=== PATIENT | female | born 1995 | race Two or more races ===

== ENCOUNTER 2019-06-14 11:22 | Observation (INO) | payer OTHER ==
--- NOTE | 2019-06-14 11:42 | ER Document Report ---
ED Medical Screen (RME) - General Stated Complaint: BLURRED VISION,SYNCOPE,NUMBNESS Time Seen by Provider: 06/14/19 11:30 Mode of Arrival: Wheelchair Information source: Patient Notes: 23-year-old female presented to ED for complaint of migraines dizziness blurred vision and passing out. She states she has passed out up to 5 minutes 3 times over the last couple days. She states she does have a history of epilepsy and took herself off of Keppra about 3 months. She states she has not followed up with her doctor since taken herself off of Keppra. She states she did not like the side effects of the Keppra. She states she does have a Mirena and does not think she is . 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 She denies any surgeries. I have greeted and performed a rapid initial assessment of this patient. A comprehensive ED assessment and evaluation of the patient, analysis of test results and completion of medical decision making process will be conducted by an additional ED providers. - Related Data Allergies/Adverse Reactions: No Known Allergies Allergy (Unverified 06/14/19 11:31)
--- NOTE | 2019-06-14 12:55 | ER Document Report ---
ED General - General Chief Complaint: Blurred Vision Stated Complaint: BLURRED VISION,SYNCOPE,NUMBNESS Time Seen by Provider: 06/14/19 11:30 Mode of Arrival: Wheelchair TRAVEL OUTSIDE OF THE [place] IN LAST 30 DAYS: No - HPI Notes: 23-year-old female with a history of seizures, not currently on any antiseizure medications presents with several complaints. Patient's primary complaint is a feeling that she might pass out and that her heart was beating fast. This happened several times over the last couple of days, last few minutes to 30 minutes at a time. [place] like her heart was beating fast in her chest. No personal history of arrhythmia, no family history of sudden in early age. Of concern is that on Wednesday she states she was at rest when she suddenly had onset of complete loss of vision in both eyes, she was only able to perceive vague light and dark but not shapes. At the same time she had onset of right upper extremity tingling and numbness. This lasted 30 minutes and then abated. Since then she has had some intermittent "problems with her peripheral vision" on the right, but does not complain of visual changes right now. Does complain of some right upper extremity vague tingling and numbness at this time. Denies any head injury, no current headache. History of migraines in the past but never had symptoms like this. Does not think she is . No vomiting, no diarrhea. No active chest pain. No other modifying factors, no other as sociated symptoms, no other provocative or palliative factors. - Related Data Allergies/Adverse Reactions: No Known Allergies Allergy (Unverified 06/14/19 11:31) Past Medical History - General Information source: Patient - Social History Smoking Status: Never Smoker Chew tobacco use (# tins/day): No Frequency of alcohol use: None Drug Abuse: None Family History: Reviewed & Not Pertinent Patient has suicidal ideation: No Patient has homicidal ideation: No - Medical History Notes: Includes seizure history Review of Systems - Review of Systems Notes: Review of systems as in the history of present illness, otherwise negative x 10 systems. Physical Exam - Vital signs Vitals: Temp Pulse Resp BP Pulse Ox 98.1 F 84 14 116/61 97 06/14/19 11:34 06/14/19 11:34 06/14/19 11:34 06/14/19 11:34 06/14/19 11:34 - Notes Notes: General: Well developed, well nourished. HEENT: Normocephalic, atraumatic. PEERL. No conjunctival injection. Neck: Supple, no significant adenopathy. No meningismus. Chest: Clear bilaterally, good air entry. Abdomen: Soft, non-tender, nondistended. Back: Non-tender. Normal ROM Extremities: No cyanosis, clubbing or edema. Vascular: Symmetric peripheral pulses, normal capillary refill. Skin: No significant rash. No petechiae or purpura. Motor: Normal tone and power. Symmetric. Neurologic: Alert and oriented to person place and time. Cranial nerves II-12 are intact. Sensation intact and symmetric in the upper and lower extremities but is diminished in the right upper extremity from the shoulder distal.. No cerebellar findings including finger-nose testing. No clonus. Gait deferred funduscopic exam shows crisp disc margins, no evidence of papilledema. Peripheral wu similar to the examiner on confrontational visual wu. Course - Re-evaluation Re-evalutation: 06/14/19 12:53 23-year-old female with the after mentioned symptoms, unclear etiology would have significant concern is her amaurosis fugax combined with her right upper extremity numbness. Although certainly would consider an atypical migraine or complex vascular migraine, the absence of any antecedent or current headache make this less likely. Stroke is possible as well as posterior circulation ischemia however, she is very low risk this would be atypical. No persistent visual changes or pain to suggest papilledema and associated optic neuritis and MS. At this point, we will proceed with telemetry monitoring and EKG to evaluate for arrhythmia, basic laboratory evaluation, CT imaging, serial exams and reevaluate. 06/14/19 15:16 Labs reviewed, CBC unremarkable, chemistries unremarkable. UPT negative. CT imaging of the brain shows no acute ab normality. Patient has had no recurrence of amaurosis fugax or other neurologic episodes during her course. No witnessed arrhythmia. Of note, her right upper extremity numbness has resolved. Although still low risk in terms of vascular phenomenon, patient has symptoms that are certainly concerning for some type of ischemia or intermittent occlusion. We will proceed with admission to the hospital service for observation and further work-up. - Vital Signs Vital signs: Temp Pulse Resp BP Pulse Ox 98.1 F 78 12 127/87 H 100 06/14/19 11:34 06/14/19 12:46 06/14/19 13:50 06/14/19 13:50 06/14/19 13:50 - Laboratory Result Diagrams: 06/14/19 12:44 06/14/19 12:44 Discharge - Discharge Clinical Impression: Amaurosis fugax, both eyes Condition: Serious Disposition: ADMITTED OBSERVATION Admitting Provider: Omar (Hospitalist) Unit Admitted: Telemetry
--- NOTE | 2019-06-14 13:18 | RADIOLOGY REPORT (SQ) ---
EXAM DESCRIPTION: CT HEAD WITHOUT COMPLETED DATE/TIME: 06/14/2019 1:01 pm REASON FOR STUDY: Right upper extremity numbness, amaurosis fugax COMPARISON: None. TECHNIQUE: Axial images acquired through the brain without intravenous contrast. Images reviewed wi th bone, brain and subdural windows. Additional sagittal and coronal reconstructions were generated. Images stored on PACS. All CT scanners at this facility use dose modulation, iterative reconstruction, and/or weight based d osing when appropriate to reduce radiation dose to as low as reasonably achievable (ALARA). [facility]: Dose Right [facility]: CareDose [facility]: Dose Right [facility]: Teradose 4D [facility]: Medical Direct Club RADIATION DOSE: CT Rad equipment meets quality standard of care and radiation dose reduction techniq ues were employed. CTDIvol: 53.2 mGy. DLP: 1017 mGy-cm. mGy. LIMITATIONS: None. FINDINGS: VENTRICLES: Normal size and contour. CEREBRUM: No masses. No hemorrhage. No midline shift. No evidence for acute infarction. Normal gra y/white matter differentiation. No areas of low density in the white matter. CEREBELLUM: No masses. No hemorrhage. No alteration of density. No evidence for acute infarction. EXTRAAXIAL SPACES: No fluid collections. No masses. ORBITS AND GLOBE: No intra- or extraconal masses. Normal contour of globe without masses. CALVARIUM: No fracture. PARANASAL SINUSES: No fluid or mucosal thickening. SOFT TISSUES: No mass or hematoma. OTHER: No other significant finding. IMPRESSION: NORMAL BRAIN CT WITHOUT CONTRAST. EVIDENCE OF ACUTE STROKE: NO. COMMENT: Quality ID # [id number]: Final reports with documentation of one or more dose reduction techniques (e.g., Automated exposure control, adjustment of the mA and/or kV according to patient size, use of iterative reconstruction technique) TECHNICAL DOCUMENTATION: JOB ID: [id number] [employer]- All Rights Reserved Reading location - IP/workstation name: [email or web address]
[2019-06-14 13:19] LABS: APPEARANCE,URINE CLEAR; BILIRUBIN,URINE NEGATIVE (NEGATIVE); COLOR,URINE STRAW; GLUCOSE, URINE NEGATIVE (NEGATIVE); KETONES,URINE NEGATIVE (NEGATIVE); LEUKOCYTE ESTERASE,URINE NEGATIVE (NEGATIVE); NITRITE,URINE NEGATIVE (NEGATIVE); PROTEIN,URINE NEGATIVE (NEGATIVE); URINE SPECIFIC GRAVITY 1.006; UROBILINOGEN,URINE NEGATIVE mg/dL (<2.0)
[2019-06-14 13:38] LABS: ABSOLUTE BASOPHILS # (AUTO) 0.1 10^3/uL (0.0-0.2); ABSOLUTE EOSINOPHILS # (AUTO) 0.1 10^3/uL (0.0-0.6); ABSOLUTE LYMPHOCYTES (AUTO) 1.8 10^3/uL (0.5-4.7); ABSOLUTE MONOCYTES (AUTO) 0.5 10^3/uL (0.1-1.4); ABSOLUTE NEUT (AUTO) 4.4 10^3/uL (1.7-8.2); ALBUMIN 4.4 g/dL (3.5-5.0); ALKALINE PHOSPHATASE 69 U/L (38-126); ANION GAP 7 (5-19); ASPARTATE AMINO TRANSFERASE 21 U/L (14-36); BASOPHILS % (AUTO) 0.8 % (0-2); BILIRUBIN,TOTAL 0.4 mg/dL (0.2-1.3); BLOOD UREA NITROGEN 16 mg/dL (7-20); CALCIUM 9.2 mg/dL (8.4-10.2); CARBON DIOXIDE 29 mmol/L (22-30); CHLORIDE 103 mmol/L (98-107); EOSINOPHILS % (AUTO) 1.7 % (0-6); GLUCOSE 82 mg/dL (75-110); HEMATOCRIT 36.9 % (36.0-47.0); HEMOGLOBIN 12.7 g/dL (12.0-15.5); LYMPHOCYTES % (AUTO) 26.6 % (13-45); MEAN CORPUSCULAR HEMOGLOBIN 30.4 pg (27.0-33.4); MEAN CORPUSCULAR HGB CONC 34.4 g/dL (32.0-36.0); MEAN CORPUSCULAR VOLUME 88 fl (80-97); MONOCYTES % (AUTO) 6.9 % (3-13); PLATELET COUNT 240 10^3/uL (150-450); POTASSIUM 4.3 mmol/L (3.6-5.0); RED BLOOD COUNT 4.18 10^6/uL (3.72-5.28); RED CELL DISTRIBUTION WIDTH 13.1 % (11.5-14.0); TOTAL CELLS COUNTED % (AUTO) 100 %; TOTAL PROTEIN 7.3 g/dL (6.3-8.2); WHITE BLOOD COUNT 6.9 10^3/uL (4.0-10.5)
[2019-06-14] MEDS ORDERED: ONDANSETRON HCL INJ/PF 4 MG/2 ML SDV IV PRN (16:19)
[2019-06-14] MEDS ORDERED: ACETAMINOPHEN 325 MG TABLET PO PRN (16:19)
[2019-06-14] MEDS ORDERED: ONDANSETRON 4 MG TAB.RAPDIS PO PRN (16:19)
[2019-06-14] MEDS ORDERED: ZOLPIDEM TARTRATE 5 MG TABLET PO PRN (16:19)
[2019-06-14] MEDS ORDERED: IBUPROFEN 600 MG TABLET PO PRN (16:28)
--- NOTE | 2019-06-14 16:49 | PDOC H&P ---
History of Present Illness Admission Date/PCP: 06/14/19 15:48 History of Present Illness: ANA LAURA BURGER is a 23 year old female who comes to the ED with a confusing history suggestive of a neurologic disease.. Patient states this past weekend she had blurred vision out of both eyes on Wednesday and then today, and she also complained of some tingling and numbness in the right upper extremity. She says she did not work Wednesday or Wednesday and just laid around the house and had no symptoms. 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 She says for years she has had headaches vertigo and dizziness and lightheaded she said sometimes she be dizzy 3 times a week. She says in the past providers have told her that it was all related to stress. She says that about 7 months ago in the ER at the [facility] she was told she had epilepsy and was started on Keppra 500 mg twice daily. She said no testing was done at that time. She says she took the medicine for about 3 weeks and then stopped it because she did not like the way she felt she also tells me that her son is now 6 years old and that during her she had "grand mall seizures". Patient does state that in the past she has had EEGs performed. Patient has another child that is 2 years old also a boy. Patient denies cigarette smoking and no drug allergies. Patient moved here 8 months ago from [facility]. She states that she was under a great deal of stress at that time but not as much now. Past Medical History Cardiac Medical History: Reports: None Pulmonary Medical History: Reports: None Neurological Medical History: Reports: Seizures - off meds Social History Smoking Status: Never Smoker - Advance Directive Resuscitation Status: Full Code Family History Family History: Reviewed & Not Pertinent, Other - She reports that she has a family history of CVAs as well as other problems, such as brain tumors and subdurals Parental Family History Reviewed: No Children Family History Reviewed: No Sibling(s) Family History Reviewed.: No Medication/Allergy Home Medications: No Home Medications 06/14/19 Allergies/Adverse Reactions: No Known Allergies Allergy (Unverified 06/14/19 11:31) Review of Systems Constitutional: PRESENT: headache(s) Respiratory: ABSENT: cough, hemoptysis Gastrointestinal: ABSENT: abdominal pain, constipation, diarrhea, hematemesis, hematochezia, nausea, vomiting Neurological: PRESENT: dizziness, paresthesias, vertigo, weakness Psychiatric: PRESENT: anxiety Physical Exam Vital Signs: Temp Pulse Resp BP Pulse Ox 98.1 F 78 18 123/76 100 06/14/19 11:34 06/14/19 12:46 06/14/19 16:01 06/14/19 16:01 06/14/19 16:01 Intake & Output 06/13/19 06/14/19 06/15/19 06:59 06:59 06:59 Weight 68.039 kg General appearance: PRESENT: no acute distress, cooperative, well-developed, well-nourished Head exam: PRESENT: atraumatic, normocephalic Neck exam: ABSENT: carotid bruit, JVD, lymphadenopathy, thyromegaly Respiratory exam: PRESENT: clear to auscultation barbara. ABSENT: rales, rhonchi, wheezes Cardiovascular exam: PRESENT: RRR. ABSENT: diastolic murmur, rubs, systolic murmur Neurological exam: PRESENT: alert, awake, oriented to person, oriented to place, oriented to time, oriented to situation, CN II-XII grossly intact. ABSENT: motor sensory deficit Psychiatric exam: PRESENT: appropriate affect, normal mood. ABSENT: homicidal ideation, suicidal ideation Results Laboratory Results: 06/14/19 12:44 06/14/19 12:44 06/14/19 06/14/19 06/14/19 12:44 12:44 12:44 WBC 6.9 RBC 4.18 Hgb 12.7 Hct 36.9 MCV 88 MCH 30.4 MCHC 34.4 RDW 13.1 Plt Count 240 Seg Neutrophils % 64.0 Sodium 139.3 Potassium 4.3 Chloride 103 Carbon Dioxide 29 Anion Gap 7 BUN 16 Creatinine 0.73 Est GFR ( Amer) > 60 Glucose 82 Calcium 9.2 Total Bilirubin 0.4 AST 21 Alkaline Phosphatase 69 Total Protein 7.3 Albumin 4.4 Urine Color STRAW Urine Appearance CLEAR Urine pH 7.0 Ur Specific [place] 1.006 Urine Protein NEGATIVE Urine Glucose (UA) NEGATIVE Urine Ketones NEGATIVE Urine Blood NEGATIVE Urine Nitrite NEGATIVE Ur Leukocyte Esterase NEGATIVE Urine WBC (Auto) 0 Urine RBC (Auto) 1 Impressions: Head CT 06/14/19 12:40 IMPRESSION: NORMAL BRAIN CT WITHOUT CONTRAST. EVIDENCE OF ACUTE STROKE: NO. Assessment and Plan - Diagnosis (1) Dizziness Is this a current diagnosis for this admission?: Yes (2) Lightheadedness Is this a current diagnosis for this admission?: Yes (3) Dysesthesia Is this a current diagnosis for this admission?: Yes (4) Anxiety Is this a current diagnosis for this admission?: Yes (5) Amaurosis fugax, both eyes Is this a current diagnosis for this admission?: Yes - Plan Summary Summary: Told the patient we do not have a neurologist here but we will go ahead and do a preliminary neuro work-up. She will be put in under observation status. She will probably need to follow-up as an outpatient with neurology. She is test in the ER is negative and CT head scan is negative as we ll, sed rate and CRP will also be checked. - Time Time Spent with patient: 35 or more minutes
[2019-06-14] MEDS ORDERED: ENOXAPARIN SODIUM INJ 40 MG/0.4 ML DISP.SYRIN SUBCUT SCH (18:00)
--- NOTE | 2019-06-14 18:11 | RADIOLOGY REPORT (SQ) ---
EXAM DESCRIPTION: MRI HEAD WITHOUT; MRA HEAD WITHOUT COMPLETED DATE/TIME: 06/14/2019 5:55 pm REASON FOR STUDY: tia COMPARISON: None. TECHNIQUE: Multiplanar imaging includes non-contrasted T1, T2, FLAIR, and diffusion with ADC map seq uences. Images stored on PACS. LIMITATIONS: None. FINDINGS: ANATOMY: No anomalies. Normal vascular flow voids. Pituitary fossa normal. CSF SPACES: Normal in size and contour. No hemorrhage. CEREBRUM: Sulci and gyri normal in size and contour. Normal white matter signal on FLAIR imaging. No evidence of hemorrhage, mass, or extraaxial fluid collection. POSTERIOR FOSSA: No signal alteration. No hemorrhage. No edema, masses or mass effect. Internal parish tory canals, cerebello-pontine angles, mastoids normal. DIFFUSION IMAGING: Negative for acute or sub-acute infarction. ORBITS: No masses. Globes normal. PARANASAL SINUSES: No fluid levels. Mucosa normal. OTHER: No other significant finding. TECHNIQUE: Axial 3-D [id number] acquisition imaging performed through the brain in the area of the [place]. Images reformatted using 3-D MIPS. FINDINGS: SOURCE IMAGES: No unexpected findings on source images. No large masses. 3-D MIP: No aneurysm. No occlusions. No significant stenosis. Normal variant right posterior cereb ral arises from anterior circulation. OTHER: No other significant finding. IMPRESSION: NORMAL MRA OF THE [place]. IMPRESSION: NORMAL MRI OF THE BRAIN WITHOUT INTRAVENOUS GADOLINIUM CONTRAST. EVIDENCE OF ACUTE STROKE: NO. TECHNICAL DOCUMENTATION: JOB ID: [id number] [employer]- All Rights Reserved Reading location - IP/workstation name: [email or web address]
--- NOTE | 2019-06-14 18:11 | RADIOLOGY REPORT (SQ) ---
EXAM DESCRIPTION: MRI HEAD WITHOUT; MRA HEAD WITHOUT COMPLETED DATE/TIME: 06/14/2019 5:55 pm REASON FOR STUDY: tia COMPARISON: None. TECHNIQUE: Multiplanar imaging includes non-contrasted T1, T2, FLAIR, and diffusion with ADC map seq uences. Images stored on PACS. LIMITATIONS: None. FINDINGS: ANATOMY: No anomalies. Normal vascular flow voids. Pituitary fossa normal. CSF SPACES: Normal in size and contour. No hemorrhage. CEREBRUM: Sulci and gyri normal in size and contour. Normal white matter signal on FLAIR imaging. No evidence of hemorrhage, mass, or extraaxial fluid collection. POSTERIOR FOSSA: No signal alteration. No hemorrhage. No edema, masses or mass effect. Internal [place] tory canals, cerebello-pontine angles, mastoids normal. DIFFUSION IMAGING: Negative for acute or sub-acute infarction. ORBITS: No masses. Globes normal. PARANASAL SINUSES: No fluid levels. Mucosa normal. OTHER: No other significant finding. TECHNIQUE: Axial 3-D [id number] acquisition imaging performed through the brain in the area of the [place]. Images reformatted using 3-D MIPS. FINDINGS: SOURCE IMAGES: No unexpected findings on source images. No large masses. 3-D MIP: No aneurysm. No occlusions. No significant stenosis. Normal variant right posterior cereb ral arises from anterior circulation. OTHER: No other significant finding. IMPRESSION: NORMAL MRA OF THE [place]. IMPRESSION: NORMAL MRI OF THE BRAIN WITHOUT INTRAVENOUS GADOLINIUM CONTRAST. EVIDENCE OF ACUTE STROKE: NO. TECHNICAL DOCUMENTATION: JOB ID: [id number] [employer]- All Rights Reserved Reading location - IP/workstation name: [email or web address]
[2019-06-14 18:15] LABS: FOLATE 9.14 ng/mL (>2.76)
[2019-06-14 18:18] LABS: C-REACTIVE PROTEIN < 5.0 mg/L (<10.0)
--- NOTE | 2019-06-14 19:53 | EKG REPORT ---
SEVERITY:- OTHERWISE NORMAL ECG - SINUS RHYTHM ATRIAL PREMATURE COMPLEX : Confirmed by: Antonella Baron MD 14-Jun-2019 19:53:00
[2019-06-14] MEDS: FAMOTIDINE 20 MG TABLET PO SCH (21:44)
--- NOTE | 2019-06-15 02:22 | RADIOLOGY REPORT (SQ) ---
CLINICAL HISTORY: tia COMPARISON: None. TECHNIQUE: US CAROTID DOPPLER BILATERAL on 06/14/2019 12:00 AM CDT FINDINGS: Right side: Peak systolic velocities are as follows: Proximal CCA 156, distal CCA 130, proximal ICA 140, distal ICA 139, ECA 1 44 cm/s. ICA to CCA ratio is 1.1. Vertebral artery flow is antegrade. Left side: Peak systolic velocities are as follows: Proximal CCA 144, distal CCA 142, proximal ICA 160, distal ICA 132, ECA 131 cm/s. ICA to CCA ratio is 1.1. Vertebral artery flow is antegrade. IMPRESSION: Less than 50% stenosis of the bilateral internal carotid arteries.
[2019-06-15 06:29] LABS: ABSOLUTE BASOPHILS # (AUTO) 0.1 10^3/uL (0.0-0.2); ABSOLUTE EOSINOPHILS # (AUTO) 0.1 10^3/uL (0.0-0.6); ABSOLUTE LYMPHOCYTES (AUTO) 2.6 10^3/uL (0.5-4.7); ABSOLUTE MONOCYTES (AUTO) 0.5 10^3/uL (0.1-1.4); ABSOLUTE NEUT (AUTO) 4.2 10^3/uL (1.7-8.2); EOSINOPHILS % (AUTO) 1.9 % (0-6); HEMATOCRIT 36.7 % (36.0-47.0); HEMOGLOBIN 12.6 g/dL (12.0-15.5); LYMPHOCYTES % (AUTO) 34.3 % (13-45); MEAN CORPUSCULAR HEMOGLOBIN 30.3 pg (27.0-33.4); MEAN CORPUSCULAR HGB CONC 34.2 g/dL (32.0-36.0); MEAN CORPUSCULAR VOLUME 89 fl (80-97); MONOCYTES % (AUTO) 6.5 % (3-13); PLATELET COUNT 237 10^3/uL (150-450); RED BLOOD COUNT 4.14 10^6/uL (3.72-5.28); RED CELL DISTRIBUTION WIDTH 13.6 % (11.5-14.0); SEGMENTED NEUTROPHILS % (AUTO) 56.3 % (42-78); TOTAL CELLS COUNTED % (AUTO) 100 %; WHITE BLOOD COUNT 7.5 10^3/uL (4.0-10.5)
[2019-06-15 06:41] LABS: ANION GAP 8 (5-19); BLOOD UREA NITROGEN 15 mg/dL (7-20); CARBON DIOXIDE 26 mmol/L (22-30); CHLORIDE 106 mmol/L (98-107); GLUCOSE 86 mg/dL (75-110); POTASSIUM 4.6 mmol/L (3.6-5.0)
[2019-06-15] MEDS ORDERED: ONDANSETRON HCL INJ/PF 4 MG/2 ML SDV IV PRN (09:00)
[2019-06-15] MEDS ORDERED: ONDANSETRON 4 MG TAB.RAPDIS PO PRN (09:00)
[2019-06-15] MEDS: FAMOTIDINE 20 MG TABLET PO SCH (09:49)
[2019-06-15 11:07] VITALS: BP 96/48
--- NOTE | 2019-06-16 16:21 | PDOC DISCHARGE SUMMARY ---
Impression - Admit/DC Date/PCP Admission Date/Primary Care Provider: 06/14/19 15:48 Discharge Date: 06/15/19 - Discharge Diagnosis (1) Dizziness Is this a current diagnosis for this admission?: Yes (2) Lightheadedness Is this a current diagnosis for this admission?: Yes (3) Dysesthesia Is this a current diagnosis for this admission?: Yes (4) Anxiety Is this a current diagnosis for this admission?: Yes (5) Amaurosis fugax, both eyes Is this a current diagnosis for this admission?: Yes - Assessment Summary: Told the patient we do not have a neurologist here but we will go ahead and do a preliminary neuro work-up. She will be put in under observation status. She will probably need to follow-up as an outpatient with neurology. She is test in the ER is negative and CT head scan is negative as well, sed rate and CRP will also be checked. - Additional Information Resuscitation Status: Full Code Discharge Diet: As Tolerated Discharge Activity: Activity As Tolerated Referrals: PRIMARY,CARE PROVIDER [Other] (PATIENT TO MAKE FOLLOW UP APPT.) Home Medications: Ibuprofen [Motrin 600 mg Tablet] 600 mg PO BIDP PRN 06/14/19 Acetaminophen [Tylenol 325 mg Tablet] 650 mg PO Q4HP PRN tablet 06/15/19 Ibuprofen [Motrin 600 mg Tablet] 600 mg PO Q8HP PRN tablet 06/15/19 History of Present Illiness History of Present Illness: ANA LAURA BURGER is a 23 year old female who comes to the ED with a confusing history suggestive of a neurologic disease.. Patient states this past weekend she had blurred vision out of both eyes on Wednesday and then today, and she also complained of some tingling and numbness in the right upper extremity. She says she did not work Wednesday or Wednesday and just laid around the house and had no symptoms. 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 She says for years she has had headaches vertigo and dizziness and lightheaded she said sometimes she be dizzy 3 times a week. She says in the past providers have told her that it was all related to stress. She says that about 7 months ago in the ER at the [facility] she was told she had epilepsy and was started on Keppra 500 mg twice daily. She said no testing was done at that time. She says she took the medicine for about 3 weeks and then stopped it because she did not like the way she felt she also tells me that her son is now 6 years old and that during her she had "grand ma ll seizures". Patient does state that in the past she has had EEGs performed. Patient has another child that is 2 years old also a boy. Patient denies cigarette smoking and no drug allergies. Patient moved here 8 months ago from [facility]. She states that she was under a great deal of stress at that time but not as much now. Physical Exam Vital Signs: Temp Pulse Resp BP Pulse Ox 98.3 F 83 20 96/48 L 100 06/15/19 11:05 06/15/19 11:05 06/15/19 11:05 06/15/19 11:05 06/15/19 11:05 Intake & Output 06/15/19 06/16/19 06/17/19 06:59 06:59 06:59 Intake Total 590 Balance 590 Weight 67.6 kg Results Laboratory Results: WBC 7.5 10^3/uL (4.0-10.5) 06/15/19 05:36 RBC 4.14 10^6/uL (3.72-5.28) 06/15/19 05:36 Hgb 12.6 g/dL (12.0-15.5) 06/15/19 05:36 Hct 36.7 % (36.0-47.0) 06/15/19 05:36 MCV 89 fl (80-97) 06/15/19 05:36 MCH 30.3 pg (27.0-33.4) 06/15/19 05:36 MCHC 34.2 g/dL (32.0-36.0) 06/15/19 05:36 RDW 13.6 % (11.5-14.0) 06/15/19 05:36 Plt Count 237 10^3/uL (150-450) 06/15/19 05:36 Lymph % (Auto) 34.3 % (13-45) 06/15/19 05:36 [place] % (Auto) 6.5 % (3-13) 06/15/19 05:36 Eos % (Auto) 1.9 % (0-6) 06/15/19 05:36 Baso % (Auto) 1.0 % (0-2) 06/15/19 05:36 Absolute Neuts (auto) 4.2 10^3/uL (1.7-8.2) 06/15/19 05:36 Absolute Lymphs (auto) 2.6 10^3/uL (0.5-4.7) 06/15/19 05:36 Absolute Monos (auto) 0.5 10^3/uL (0.1-1.4) 06/15/19 05:36 Absolute Eos (auto) 0.1 10^3/uL (0.0-0.6) 06/15/19 05:36 Absolute Basos (auto) 0.1 10^3/uL (0.0-0.2) 06/15/19 05:36 Seg Neutrophils % 56.3 % (42-78) 06/15/19 05:36 ESR 6 mm/hr (0-20) 06/14/19 12:44 Sodium 139.5 mmol/L (137-145) 06/15/19 05:36 Potassium 4.6 mmol/L (3.6-5.0) 06/15/19 05:36 Chloride 106 mmol/L (98-107) 06/15/19 05:36 Carbon Dioxide 26 mmol/L (22-30) 06/15/19 05:36 Anion Gap 8 (5-19) 06/15/19 05:36 BUN 15 mg/dL (7-20) 06/15/19 05:36 Creatinine 0.75 mg/dL (0.52-1.25) 06/15/19 05:36 Est GFR ( Amer) > 60 (>60) 06/15/19 05:36 Est GFR (MDRD) Non-Af > 60 (>60) 06/15/19 05:36 Glucose 86 mg/dL (75-110) 06/15/19 05:36 Calcium 9.0 mg/dL (8.4-10.2) 06/15/19 05:36 Magnesium 2.1 mg/dL (1.6-2.3) 06/15/19 05:36 Total Bilirubin 0.4 mg/dL (0.2-1.3) 06/14/19 12:44 Direct Bilirubin 0.0 mg/dL (0.0-0.4) 06/14/19 12:44 Neonat Total Bilirubin Not Reportable 06/14/19 12:44 Neonat Direct Bilirubin Not Reportable 06/14/19 12:44 Neonat Indirect Bili Not Reportable 06/14/19 12:44 AST 21 U/L (14-36) 06/14/19 12:44 ALT 14 U/L (<35) 06/14/19 12:44 Alkaline Phosphatase 69 U/L (38-126) 06/14/19 12:44 C-Reactive Protein < 5.0 mg/L (<10.0) 06/14/19 12:44 Total Protein 7.3 g/dL (6.3-8.2) 06/14/19 12:44 Albumin 4.4 g/dL (3.5-5.0) 06/14/19 12:44 Vitamin B12 349.0 pg/mL (239-931) 06/14/19 12:44 Folate 9.14 ng/mL (>2.76) 06/14/19 12:44 TSH 2.40 uIU/mL (0.47-4.68) 06/14/19 12:44 Beta HCG, Quant < 2.39 mIU/mL (0.0-6.15) 06/14/19 12:44 Total Beta HCG NEGATIVE (NEGATIVE) 06/14/19 12:44 Urine Color STRAW 06/14/19 12:44 Urine Appearance CLEAR 06/14/19 12:44 Urine pH 7.0 (5.0-9.0) 06/14/19 12:44 Ur Specific [place] 1.006 06/14/19 12:44 Urine Protein NEGATIVE mg/dL (NEGATIVE) 06/14/19 12:44 Urine Glucose (UA) NEGATIVE mg/dL (NEGATIVE) 06/14/19 12:44 Urine Ketones NEGATIVE mg/dL (NEGATIVE) 06/14/19 12:44 Urine Blood NEGATIVE (NEGATIVE) 06/14/19 12:44 Urine Nitrite NEGATIVE (NEGATIVE) 06/14/19 12:44 Urine Bilirubin NEGATIVE (NEGATIVE) 06/14/19 12:44 Urine Urobilinogen NEGATIVE mg/dL (<2.0) 06/14/19 12:44 Ur Leukocyte Esterase NEGATIVE (NEGATIVE) 06/14/19 12:44 Urine WBC (Auto) 0 /HPF 06/14/19 12:44 Urine RBC (Auto) 1 /HPF 06/14/19 12:44 Squamous Epi Cells Auto 1 /HPF 06/14/19 12:44 Urine Mucus (Auto) RARE /LPF 06/14/19 12:44 Urine Ascorbic Acid NEGATIVE (NEGATIVE) 06/14/19 12:44 Impressions: Brain MRI with MRA 06/14/19 00:00 IMPRESSION: NORMAL MRI OF THE BRAIN WITHOUT INTRAVENOUS GADOLINIUM CONTRAST. EVIDENCE OF ACUTE STROKE: NO. Carotid Doppler Study 06/14/19 00:00 IMPRESSION: Less than 50% stenosis of the bilateral internal carotid arteries. Head MRI 06/14/19 00:00 IMPRESSION: NORMAL MRI OF THE BRAIN WITHOUT INTRAVENOUS GADOLINIUM CONTRAST. EVIDENCE OF ACUTE STROKE: NO. Head CT 06/14/19 12:40 IMPRESSION: NORMAL BRAIN CT WITHOUT CONTRAST. EVIDENCE OF ACUTE STROKE: NO. Stroke Is this a Stroke Patient?: No Acute Heart Failure - Is this a Heart Failure Patient?: No
== END 2019-06-15 11:40 | disposition home or self-care (01) ==
LOC: ER 11:22 → INTOOBSV 15:48 → EH 15:48 → 5 17:48
PROVIDERS: ADMIT Internal Medicine; ATTEND Internal Medicine
DX: R42 Dizziness and giddiness (principal); R20.8 Other disturbances of skin sensation; F41.9 Anxiety disorder, unspecified; G45.3 Amaurosis fugax; Z32.02 Encounter for pregnancy test, result negative; R20.2 Paresthesia of skin; R20.0 Anesthesia of skin; R51 Headache; R53.1 Weakness; Z86.69 Personal history of other diseases of the nervous system and sense organs; Z82.3 Family history of stroke; Z84.89 Family history of other specified conditions
CPT/HCPCS: 93005; 99285; 36415 ×2; 82607; 82746; 84702; 83735; 84443; 85025 ×2; 85652; 86140; 80048; 80053; 81001; 93880; 70551; 70544; 70450; 93010; G0378 ×3

== ENCOUNTER 2019-07-19 08:58 | Emergency (ER) | payer OTHER ==
--- NOTE | 2019-07-19 11:28 | ER Document Report ---
ED General - General Chief Complaint: Neck Pain >24hrs old Stated Complaint: NECK PAIN Time Seen by Provider: 07/19/19 10:58 Primary Care Provider: BELKIS VIZCARRA MD [Primary Care Provider] - Follow up as needed TRAVEL OUTSIDE OF THE [place] IN LAST 30 DAYS: No - HPI Notes: Selin Quintana is a 23-year-old female apparently has history of seizure disorder in childhood. She is been seen and admitted to the hospitalist service here recently after some sort of an episode of possible fainting with some transient neurologic deficit and headache. She was referred to a neurologist but is not been in see them yet. They apparently briefly put her on Keppra but she stopped taking it because she said it made her "feel funny". She had another fainting episode 2 days ago is not able to remember very much about the event. Family apparently took her to the [facility] and she does not remember what type of testing they did. She comes in today primarily because of persistent soreness in her neck and mid dorsal spine. Pertinent prior history: Patient has history of anxiety and depression. She is currently using Mirena for contraception. - Related Data Allergies/Adverse Reactions: No Known Allergies Allergy (Verified 07/19/19 09:09) Home Medications: Meclizine Past Medical History - General Information source: Patient - Social History Smoking Status: Never Smoker Chew tobacco use (# tins/day): No Frequency of alcohol use: Rare Drug Abuse: None Lives with: Family Family History: Reviewed & Not Pertinent, Other - She reports that she has a family history of CVAs as well as other problems, such as brain tumors and subdurals Patient has suicidal ideation: No Patient has homicidal ideation: No Neurological Medical History: Reports: Hx Seizures - off meds Psychiatric Medical History: Reports: Hx Anxiety Review of Systems - Review of Systems Notes: Constitutional: Negative for fever. HENT: Negative for sore throat. Eyes: Negative for visual changes. Cardiovascular: Negative for chest pain. Respiratory: Negative for shortness of breath. Gastrointestinal: Negative for abdominal pain, vomiting or diarrhea. Genitourinary: Negative for dysuria. Musculoskeletal: As per HPI. Skin: Negative for rash. Neurological: As per HPI. 10 point ROS negative except as marked above and in HPI. Physical Exam - Vital signs Vitals: Temp Pulse Resp BP Pulse Ox 97.8 F 76 14 103/69 100 07/19/19 09:14 07/19/19 09:14 07/19/19 09:14 07/19/19 09:14 07/19/19 09:14 Notes: GENERAL: Well-developed well-nourished appearing in no acute distress. Very flat affect noted. SKIN: Good turgor no rashes. HEAD: Normocephalic atraumatic. EYES: PERRLA. Conjunctivae and sclerae clear. EARS: CANALS AND TMS CLEAR. NOSE: CLEAR. MOUTH: Moist mucosa. Good dentition. No stridor or edema. No drooling. NECK: Patient has c-collar in situ placed by EMS. Mildly tender midline neck posteriorly without step-off or crepitus. Supple. No masses or thyromegaly. No adenopathy. Carotids 2+ without bruits. No JVD. BACK: Symmetrical with mild tenderness mid dorsal spine area. No visible ecchymoses. No step-off. No crepitus. CHEST: Respirations unlabored. Breath sounds clear and symmetrical. HEART: Regular rhythm. No murmur gallop or rub. ABDOMEN: Soft nontender without masses, organomegaly or rebound. Bowel sounds normally active. No bruits. GENITALIA: Deferred. EXTREMITIES: No edema. No calf tenderness. Cap refill less than 1.5 seconds. Dorsalis pedis and posterior tibial pulses 3+ and symmetrical. NEUROLOGICAL: GCS 15. Alert and oriented x3. Normal gait. Fluent speech. Cranial nerves II through XII intact. Sensorimotor and cerebellar normal. Normal tone. PSYCHIATRIC: Very flat affect. Course - Re-evaluation Re-evalutation: 07/19/19 11:32 I am going to obtain plain images of cervical and dorsal spine to rule out fracture. If this is negative I think she can follow-up outpatient with neurology. It is unclear to me whether she is having syncopal episodes, seizures or possibly pseudoseizures related to vegetative symptoms of depression. I think this is already been adequately addressed with current work-up. I have reviewed her inpatient records from recent hospitalization and note that she had a normal head CT EKG and lab studies all of which appear appropriate. - Vital Signs Vital signs: Temp Pulse Resp BP Pulse Ox 97.8 F 76 14 103/69 100 07/19/19 09:14 07/19/19 09:14 07/19/19 09:14 07/19/19 09:14 07/19/19 09:14 - Diagnostic Test Radiology reviewed: Reports reviewed Discharge - Discharge Clinical Impression: Anxiety Contusion of neck Qualifiers: Encounter type: subsequent encounter Qualified Code(s): S10.93XD - Contusion of unspecified part of neck, subsequent encounter Contusion, back Qualifiers: Encounter type: subsequent encounter Laterality: unspecified laterality Qualified Code(s): S20.229D - Contusion of unspecified back wall of thorax, subsequent encounter Condition: Stable Disposition: HOME, SELF-CARE Additional Instructions: Ice packs as needed. Ice packs as needed. Follow-up with your primary care provider and neurologist as previously advised. Do not drive until you have had further evaluation for your fainting episodes. Prescriptions: Naproxen 500 mg PO BID 10 Days #20 tablet Referrals: BELKIS VIZCARRA MD [Primary Care Provider] - Follow up as needed
--- NOTE | 2019-07-19 11:50 | RADIOLOGY REPORT (SQ) ---
EXAM DESCRIPTION: CERV SP 4 OR 5 VIEWS COMPLETED DATE/TIME: 07/19/2019 11:43 am REASON FOR STUDY: neck pain after syncope COMPARISON: None. NUMBER OF VIEWS: Five views. TECHNIQUE: AP, lateral, obliques and odontoid radiographic images acquired of the cervical spine. LIMITATIONS: None. FINDINGS: MINERALIZATION: Normal. ALIGNMENT: Anatomic. VERTEBRAE: Vertebral bodies of normal height. DISCS: No significant osteophytes or sclerosis. Disc height maintained. FORAMINA: No osteophytes or foraminal narrowing. LATERAL AND POSTERIOR ELEMENTS: Facets, lateral masses and spinous processes without significant find ings. HARDWARE: None in the spine. SOFT TISSUES: No masses or calcifications. Lung apices clear. OTHER: No other significant finding. IMPRESSION: NO SIGNIFICANT RADIOGRAPHIC FINDING IN THE CERVICAL SPINE. TECHNICAL DOCUMENTATION: JOB ID: [id number] [employer]- All Rights Reserved Reading location - IP/workstation name: [email or web address]
--- NOTE | 2019-07-19 11:50 | RADIOLOGY REPORT (SQ) ---
EXAM DESCRIPTION: T SPINE AP/LAT COMPLETED DATE/TIME: 07/19/2019 11:43 am REASON FOR STUDY: neck pain after syncope COMPARISON: None. NUMBER OF VIEWS: Two views. TECHNIQUE: AP and lateral radiographic images acquired of the thoracic spine. LIMITATIONS: None. FINDINGS: MINERALIZATION: Normal. ALIGNMENT: Normal. No scoliosis. VERTEBRAE: No fracture or bone lesion. Maintained height, normal segmentation. DISCS: No significant loss of height or significant narrowing. No large osteophytes. HARDWARE: None in the spine. MEDIASTINUM AND SOFT TISSUES: Normal heart size and aortic contour. No soft tissue abnormality. VISUALIZED LUNG HUANG: Clear. OTHER: No other significant finding. IMPRESSION: NO SIGNIFICANT RADIOGRAPHIC FINDING IN THE THORACIC SPINE. TECHNICAL DOCUMENTATION: JOB ID: [id number] [employer]- All Rights Reserved Reading location - IP/workstation name: [email or web address]
[2019-07-19] MEDS ORDERED: KETOROLAC TROMETHAMINE 60 MG/2 ML SDV IM ONE (13:01)
[2019-07-19 13:34] VITALS: BP 106/62
== END 2019-07-19 13:34 | disposition home or self-care (01) ==
LOC: ER 08:58
DX: F41.9 Anxiety disorder, unspecified (principal); S10.93XD Contusion of unspecified part of neck, subsequent encounter; S20.229D Contusion of unspecified back wall of thorax, subsequent encounter; X58.XXXD Exposure to other specified factors, subsequent encounter
CPT/HCPCS: 72050; 72070; J1885; 96372; 99283

== ENCOUNTER 2019-08-24 21:31 | Emergency (ER) | payer OTHER ==
--- NOTE | 2019-08-24 21:43 | ER Document Report ---
ED Medical Screen (RME) - General Chief Complaint: Vaginal Bleeding Stated Complaint: VAGINAL BLEEDING Time Seen by Provider: 08/24/19 21:42 Primary Care Provider: BELKIS VIZCARRA MD [Primary Care Provider] - Follow up as needed TRAVEL OUTSIDE OF THE [place] IN LAST 30 DAYS: No - HPI Notes: 08/24/19 21:42 Patient is a 23-year-old female with a history of seizures, currently has mobile EEG and EKG monitoring, presents complaining of right lower pelvic pain and vaginal bleeding over the past 9 days after she had her IUD removed. She is able to eat and drink without difficulty. She is urinating normally and having normal bowel movements. Denies drug allergies. Last menstrual period was 3 years ago otherwise. No fever. I have treated and performed a rapid initial assessment of this patient. A comprehensive ED assessment and evaluation of the patient, analysis of test results and completion of medical decision making process will be conducted by additional ED providers. PHYSICAL EXAMINATION: GENERAL: Well-appearing, well-nourished and in no acute distress. A&Ox4. Answers questions appropriately. - Related Data Allergies/Adverse Reactions: No Known Allergies Allergy (Verified 07/19/19 09:09) Past Medical History Neurological Medical History: Reports: Hx Seizures - off meds Psychiatric Medical History: Reports: Hx Anxiety Doctor's Discharge - Discharge Referrals: BELKIS VIZCARRA MD [Primary Care Provider] - Follow up as needed
[2019-08-24 22:10] LABS: ABSOLUTE BASOPHILS # (AUTO) 0.1 10^3/uL (0.0-0.2); ABSOLUTE EOSINOPHILS # (AUTO) 0.2 10^3/uL (0.0-0.6); ABSOLUTE LYMPHOCYTES (AUTO) 2.6 10^3/uL (0.5-4.7); ABSOLUTE MONOCYTES (AUTO) 0.6 10^3/uL (0.1-1.4); ABSOLUTE NEUT (AUTO) 6.2 10^3/uL (1.7-8.2); BASOPHILS % (AUTO) 0.7 % (0-2); EOSINOPHILS % (AUTO) 1.9 % (0-6); HEMATOCRIT 36.2 % (36.0-47.0); HEMOGLOBIN 12.7 g/dL (12.0-15.5); LYMPHOCYTES % (AUTO) 26.7 % (13-45); MEAN CORPUSCULAR HEMOGLOBIN 30.8 pg (27.0-33.4); MEAN CORPUSCULAR VOLUME 88 fl (80-97); MONOCYTES % (AUTO) 6.4 % (3-13); PLATELET COUNT 291 10^3/uL (150-450); RED BLOOD COUNT 4.11 10^6/uL (3.72-5.28); SEGMENTED NEUTROPHILS % (AUTO) 64.3 % (42-78); TOTAL CELLS COUNTED % (AUTO) 100 %; WHITE BLOOD COUNT 9.6 10^3/uL (4.0-10.5)
[2019-08-24 22:18] LABS: APPEARANCE,URINE SLIGHTLY-CLOUDY; BILIRUBIN,URINE NEGATIVE (NEGATIVE); COLOR,URINE YELLOW; GLUCOSE, URINE NEGATIVE (NEGATIVE); KETONES,URINE TRACE mg/dL (NEGATIVE); PROTEIN,URINE 100 mg/dL (NEGATIVE); URINE SPECIFIC GRAVITY 1.028
--- NOTE | 2019-08-24 22:22 | ER Document Report ---
ED GI/ - General Chief Complaint: Vaginal Bleeding Stated Complaint: VAGINAL BLEEDING Time Seen by Provider: 08/24/19 21:42 Primary Care Provider: BELKIS VIZCARRA MD [NO LOCAL MD] - Follow up as needed Mode of Arrival: Ambulatory Information source: Patient TRAVEL OUTSIDE OF THE [place] 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 Lives with: Family Family History: Reviewed & Not Pertinent, Other - She reports that she has a family history of CVAs as well as other problems, such as brain tumors and subdurals Patient has suicidal ideation: No Patient has homicidal ideation: No - Past Medical History Cardiac Medical History: Reports: None Pulmonary Medical History: Reports: Hx Bronchitis EENT Medical History: Reports: None Neurological Medical History: Reports: Hx Seizures - off meds Endocrine Medical History: Reports: None Renal/ Medical History: Reports: None Malignancy Medical History: Reports: None GI Medical History: Reports: None Musculoskeletal Medical History: Reports Hx Musculoskeletal Trauma Skin Medical History: Reports None Psychiatric Medical History: Reports: Hx Anxiety, Other - Vertigo Traumatic Medical History: Reports: None Infectious Medical History: Reports: None Surgical Hx: Negative Past Surgical History: Reports: None Review of Systems - Review of Systems Constitutional: No symptoms reported EENT: No symptoms reported Cardiovascular: Dizziness, Lightheaded Respiratory: No symptoms reported Gastrointestinal: Nausea Genitourinary: No symptoms reported Female Genitourinary: Vaginal bleeding, Other - Pelvic pain right Musculoskeletal: No symptoms reported Skin: No symptoms reported Hematologic/Lymphatic: No symptoms reported Neurological/Psychological: No symptoms reported Physical Exam - Vital signs Vitals: Temp Pulse Resp BP Pulse Ox 97.6 F 88 16 125/70 98 08/24/19 21:36 08/24/19 21:36 08/24/19 21:36 08/24/19 21:36 08/24/19 21:36 Interpretation: Normal - General General appearance: Appears well, Alert - HEENT Head: Normocephalic, Atraumatic Eyes: Normal Pupils: PERRL - Respiratory Respiratory status: No respiratory distress Chest status: Nontender Breath sounds: Normal Chest palpation: Normal - Cardiovascular Rhythm: Regular Heart sounds: Normal auscultation Murmur: No - Abdominal Inspection: Normal Distension: No distension Bowel sounds: Normal Tenderness: Tender - right lower quad and pelvic pain Organomegaly: No organomegaly - Genitourinary External exam: Normal Vaginal bleeding: Moderate Bimanuel exam: Adnexal tenderness - bilateral Notes: Pelvic was chaperoned by Maura Ferreira RN - Back Back: Normal, Nontender - Extremities General upper extremity: Normal inspection, Nontender, Normal color, Normal ROM, Normal temperature General lower extremity: Normal inspection, Nontender, Normal color, Normal ROM, Normal temperature, Normal weight bearing. No: Elmer's sign - Neurological Neuro grossly intact: Yes Cognition: Normal Orientation: AAOx4 [place] Coma Scale Eye Opening: Spontaneous [place] Coma Scale Verbal: Oriented [place] Coma Scale Motor: Obeys Commands [place] Coma Scale Total: 15 Speech: Normal Motor strength normal: LUE, RUE, LLE, RLE Sensory: Normal - Psychological Associated symptoms: Normal affect, Normal mood - Skin Skin Temperature: Warm Skin Moisture: Dry Skin Color: Normal Course - Re-evaluation Re-evalutation: 08/24/19 23:22 Discussed ultrasound and labs with patient and then Dr. Wang, patient was offered a CAT scan at this time due to the right lower quadrant pain negative u ltrasound and her lab results. Patient stated she would follow-up with her primary care doctor and get an abdominal exam by her primary care doctor within the next 12 to 24 hours. She has been instructed to return to the ED immediately for any increase in pain nausea vomiting or fever. stated they would prefer to do this then to have a CAT scan tonight. I discussed this with and she stated is not unreasonable her to follow-up with her primary care doctor as long as she does not have an elevated white count and is afebrile. Her white count is not elevated and she is afebrile at this time. Patient will be discharged home with instructions to follow-up. - Vital Signs Vital signs: Temp Pulse Resp BP Pulse Ox 97.6 F 78 16 117/72 97 08/24/19 23:35 08/24/19 23:35 08/24/19 23:35 08/24/19 23:35 08/24/19 23:35 - Laboratory Result Diagrams: 08/24/19 21:48 08/24/19 21:48 Laboratory results interpreted by me: 08/24/19 08/24/19 21:48 21:48 Glucose 112 H Urine Protein 100 H Urine Ketones TRACE H Urine Blood LARGE H Urine Urobilinogen 2.0 H - Diagnostic Test Radiology reviewed: Image reviewed, Reports reviewed Discharge - Discharge Clinical Impression: Vaginal bleeding, Bilateral pelvic pain, Right lower quadrant abdominal pain Condition: Stable Disposition: HOME, SELF-CARE Instructions: Observation for Appendicitis ([facility]) Additional Instructions: ABDOMINAL PAIN: There are many causes of abdominal pain. Pain can mean a serious problem requiring surgery (such as appendicitis). It can also be an innocent problem that goes away on its own (such as a viral infection). Often, time must pass to determine the cause of pain. The physician does not feel that hospitalization is necessary, at present. Things may change within the next 24 hours. Call the doctor or come back for re-examination if any problems occur, such as: (1) Pain that becomes more severe, steady, or becomes concentrated in one specific area. Also, pain that is more severe with movement or coughing. (2) Vomiting that persists or becomes more frequent. (3) Blood in the vomitus, urine, or bowel movements. Blood in the stool may have a tarry or black appearance. (4) Shaking chills or fever greater than 100 degrees F. (5) The abdomen becomes more distended or swollen. (6) Bowel movements cease. (7) Failure to improve as expected. VAGINAL BLEEDING: You are having an episode of abnormal bleeding. Causes of abnormal vaginal bleeding can include miscarriage or tubal , tumors such as cancer or benign fibroids, medication effects, or hormone imbalance. Testing can eliminate unsuspected , tumors, or infection as a cause. "Dysfunctional uterine bleeding" is due to hormone imbalance, and is especially common at times when the normal cycle is disturbed -- whether by recent , use of control pills or hormones, or impending menopause. If the bleeding is innocent, most commonly a short course of hormones is given to restore the uterus to normal. Sometimes, the normal menstrual cycle corrects itself naturally. Stone etimes, brief hormone therapy, or even a D&C is required. Your physician will advise you. Treatment for anemia may be required if bleeding is severe. You should rest and avoid intercourse until the bleeding is controlled. Call the doctor or return for re-examination if you feel faint, have increasing pain, or have a major increase in the amount of bleeding. You do have right lower quadrant abdominal pain. You have been offered a CAT scan at this time to evaluate this right lower quadrant pain. You have decided that she will follow-up with your primary care doctor to get a reexamination of your abdomen within the next 12 to 24 hours. You have also agreed that she would return to the ED immediately for any fevers increasing pain or nausea and vomiting. You are on a telemetry and EEG outpatient for your dizziness and lightheadedness. P FOLLOW-UP CARE: If you have been referred to a physician for follow-up care, call the physicians office for an appointment as you were instructed or within the next two days. If you experience worsening or a significant change in your symptoms, notify the physician immediately or return to the Emergency Department at any time for re-evaluation. FOLLOW-UP CARE: You should be examined by your primary care doctor return for re-evaluation in 12 to 24 hours. This follow-up visit is important. If you are unable to return, or feel that the return visit is unnecessary, please call us. Referrals: BELKIS VIZCARRA MD [NO LOCAL MD] - Follow up as needed
[2019-08-24 22:36] LABS: ALBUMIN 4.6 g/dL (3.5-5.0); ALKALINE PHOSPHATASE 85 U/L (38-126); ANION GAP 11 (5-19); ASPARTATE AMINO TRANSFERASE 29 U/L (14-36); BILIRUBIN,DIRECT 0.1 mg/dL (0.0-0.4); BILIRUBIN,TOTAL 0.3 mg/dL (0.2-1.3); BLOOD UREA NITROGEN 17 mg/dL (7-20); CALCIUM 9.5 mg/dL (8.4-10.2); CARBON DIOXIDE 29 mmol/L (22-30); CHLORIDE 99 mmol/L (98-107); GLUCOSE 112 mg/dL (75-110); POTASSIUM 3.7 mmol/L (3.6-5.0); TOTAL PROTEIN 7.5 g/dL (6.3-8.2)
--- NOTE | 2019-08-24 22:47 | RADIOLOGY REPORT (SQ) ---
EXAM DESCRIPTION: US PELVIS TRANSVAGINAL COMPLETED DATE/TME: 08/24/2019 21:42 CLINICAL HISTORY: 23 years, Female, bleeding, rt pelvic pain COMPARISON: None. TECHNIQUE: Emergent pelvic ultrasound LIMITATIONS: None. FINDINGS: The uterus measures 8.3 x 5.3 x 3.7 cm. The myometrium is homogenous. The endometrium measures 2 mm in thickness. The right ovary measures 2.5 x 2.7 x 3.5 cm, the left 3.2 x 2.3 x 2.6 cm. Arterial and venous flow to each ovary. No solid adnexal mass. Bilateral ovarian follicles. No free fluid IMPRESSION: Unremarkable exam copyright 2010 [employer] All Rights Reserved
[2019-08-24 23:36] VITALS: BP 117/72
== END 2019-08-24 23:44 | disposition home or self-care (01) ==
LOC: ER 21:31
DX: N93.9 Abnormal uterine and vaginal bleeding, unspecified (principal); R10.2 Pelvic and perineal pain; R10.31 Right lower quadrant pain; R10.813 Right lower quadrant abdominal tenderness; Z98.890 Other specified postprocedural states; R42 Dizziness and giddiness; R11.0 Nausea
CPT/HCPCS: 36415; 76830; 80053; 81001; 84703; 85025; 93976; 99284

== ENCOUNTER 2019-12-22 13:01 | Emergency (ER) | payer OTHER ==
--- NOTE | 2019-12-22 13:09 | ER Document Report ---
ED Medical Screen (RME) - General Chief Complaint: Abdominal Pain Stated Complaint: ABDOMINAL PAIN Time Seen by Provider: 12/22/19 13:05 Primary Care Provider: CHRISTOPHER MASTERS [Primary Care Provider] - Follow up as needed Mode of Arrival: Ambulatory Information source: Patient Notes: Otherwise healthy 24-year-old female presenting to the emergency department with a plethora of complaints today. Patient states about a week ago she started having abdominal pain that started in the right upper quadrant but has now spread to the left upper quadrant and the left lower quadrant. She reports associated nausea, diarrhea, fatigue. She also reports she has been urinating frequently. She denies any fevers. Abdomen soft, nontender. I have greeted and performed a rapid initial assessment of this patient. A comprehensive ED assessment and evaluation of the patient, analysis of test results and completion of the medical decision making process will be conducted by additional ED providers. I have specifically instructed the patient or family members with the patient to immediately return to any nursing staff should anything change in the patient's condition or with their chief complaint. TRAVEL OUTSIDE OF THE [place] IN LAST 30 DAYS: No - Related Data Allergies/Adverse Reactions: No Known Allergies Allergy (Verified 07/19/19 09:09) Past Medical History Pulmonary Medical History: Reports: Hx Bronchitis Neurological Medical History: Reports: Hx Seizures - off meds Musculoskeltal Medical History: Reports Hx Musculoskeletal Trauma Psychiatric Medical History: Reports: Hx Anxiety Physical Exam - Vital signs Vitals: Temp Pulse Resp BP Pulse Ox 97.5 F 78 20 126/75 H 97 12/22/19 13:04 12/22/19 13:04 12/22/19 13:04 12/22/19 13:04 12/22/19 13:04 Course - Vital Signs Vital signs: Temp Pulse Resp BP Pulse Ox 97.5 F 78 20 126/75 H 97 12/22/19 13:04 12/22/19 13:04 12/22/19 13:04 12/22/19 13:04 12/22/19 13:04 Doctor's Discharge - Discharge Referrals: CHRISTOPHER MASTERS [Primary Care Provider] - Follow up as needed
[2019-12-22] MEDS ORDERED: FAMOTIDINE INJ/PF 20 MG/2 ML SDV IV ONE (13:53)
[2019-12-22] MEDS ORDERED: ONDANSETRON HCL INJ/PF 4 MG/2 ML SDV IV ONE (13:53)
--- NOTE | 2019-12-22 13:59 | ER Document Report ---
ED General - General Chief Complaint: Abdominal Pain Stated Complaint: ABDOMINAL PAIN Time Seen by Provider: 12/22/19 13:05 Primary Care Provider: [facility] [Provider Group] - Follow up as needed [facility] [Provider Group] - Follow up as needed LOCAL,CHRISTOPHER [NO LOCAL MD] - Follow up as needed Mode of Arrival: Ambulatory TRAVEL OUTSIDE OF THE [place] IN LAST 30 DAYS: No - HPI Notes: Chief complaint: Nausea, vomiting, diarrhea and burning/cramping abdominal discomfort. Previously healthy 24-year-old female 1 para 1 with last menses 2 weeks ago and recent removal of an IUD awakened around 0200 hrs. today with nausea and vomiting. She is subsequently vomited several more times and is now having some watery stools. She denies any melena or hematochezia. She denies any hematemesis or coffee-ground emesis. She is having some burning/cramping epigastric discomfort. She denies fever, chills, dysuria or back pain. She denies vaginal discharge. She denies any known ill contacts and has not traveled recently. Patient denies any respiratory symptoms. No prior surgery. No known allergies and no long-term medications. Non-smoker. Denies use of drugs or alcohol. - Related Data Allergies/Adverse Reactions: No Known Allergies Allergy (Verified 07/19/19 09:09) Home Medications: meclizine Past Medical History - General Information source: Patient - Social History Smoking Status: Never Smoker Family History: Reviewed & Not Pertinent, Other - She reports that she has a family history of CVAs as well as other problems, such as brain tumors and subdurals Patient has suicidal ideation: No Patient has homicidal ideation: No Pulmonary Medical History: Reports: Hx Bronchitis Neurological Medical History: Reports: Hx Seizures - off meds Musculoskeletal Medical History: Reports Hx Musculoskeletal Trauma Psychiatric Medical History: Reports: Hx Anxiety Review of Systems - Review of Systems Notes: Constitutional: Negative for fever. HENT: Negative for sore throat. Eyes: Negative for visual changes. Cardiovascular: Negative for chest pain. Respiratory: Negative for shortness of breath. Gastrointestinal: As per HPI. Genitourinary: Negative for dysuria. Musculoskeletal: Negative for back pain. Skin: Negative for rash. Neurological: Negative for headaches, weakness or numbness. 10 point ROS negative except as marked above and in HPI. Physical Exam - Vital signs Vitals: Temp Pulse Resp BP Pulse Ox 97.5 F 78 20 126/75 H 97 12/22/19 13:04 12/22/19 13:04 12/22/19 13:04 12/22/19 13:04 12/22/19 13:04 - Notes Notes: GENERAL: Well-developed well-nourished appearing in no acute distress. SKIN: Good turgor no rashes. HEAD: Normocephalic atraumatic. EYES: PERRLA. EOMI. Conjunctivae and sclerae clear. EARS: CANALS AND TMS CLEAR. NOSE: CLEAR. MOUTH: Tacky oral mucosa. Good dentition. No stridor or edema. No drooling. NECK: Supple. No masses or thyromegaly. No adenopathy. Carotids 2+ without bruits. No JVD. BACK: Symmetrical without tenderness. CHEST: Respirations unlabored. Breath sounds clear and symmetrical. HEART: Regular rhythm. No murmur gallop or rub. ABDOMEN: Soft nontender without masses, organomegaly or rebound. Bowel sounds hyperactive. No bruits. GENITALIA: Deferred. EXTREMITIES: No edema. No calf tenderness. Cap refill less than 1.5 seconds. Dorsalis pedis and posterior tibial pulses 3+ and symmetrical. NEUROLOGICAL: GCS 15. Alert and oriented x3. Normal gait. Fluent speech. Cranial nerves II through XII intact. Sensorimotor and cerebellar normal. Normal tone. PSYCHIATRIC: Appropriate affect. Course - Re-evaluation Re-evalutation: 12/22/19 15:43 Clinically patient appears to have viral gastroenteritis with mild dehydration. She symptomatically greatly improved after receiving 2 L of normal saline IV along with some IV Zofran and IV Pepcid. Vital signs remained stable. White count was not elevated. Hemoglobin is normal. Compressive metabolic profile and lipase are normal. Urinalysis is normal. test negative. Findings are reviewed with the patient and I feel she is stable for outpatient f ollow-up with PMD. Patient reports that she had a similar episode of illness several months ago and when she spoke with her mother on the phone today that the mother suggested she should get a work-up for celiac disease. I explained to her that on the basis of the episodic nature of her symptoms I did not think this was an urgent issue but offered to provide her the name of a vibration technician with whom she could further discuss her concerns electively. - Vital Signs Vital signs: Temp Pulse Resp BP Pulse Ox 97.5 F 78 20 126/75 H 97 12/22/19 13:04 12/22/19 13:04 12/22/19 13:04 12/22/19 13:04 12/22/19 13:04 - Laboratory Result Diagrams: 12/22/19 13:37 12/22/19 13:37 Laboratory results interpreted by me: 12/22/19 13:37 RDW 14.1 H Discharge - Discharge Clinical Impression: Dehydration, Acute gastroenteritis Condition: Stable Disposition: HOME, SELF-CARE Instructions: Gastroenteritis (adult) ([facility]) Additional Instructions: Return here as needed for new or worsening symptoms: Pain that is worsening or unimproved Uncontrolled vomiting High fever or shaking chills Overall worsening Follow-up with your primary care physician or referral physician as needed. Prescriptions: Loperamide HCl [Imodium A-D] 2 mg PO ASDIR PRN 3 Days #12 tablet PRN Reason: Ondansetron [Zofran Odt 4 mg Tablet] 1 - 2 tab PO Q4H PRN #15 tab.rapdis PRN Reason: For Nausea/Vomiting Referrals: GUERRERO,NO [NO LOCAL MD] - Follow up as needed [facility] [Provider Group] - Follow up as needed [facility] [Provider Group] - Follow up as needed
[2019-12-22 14:00] LABS: ABSOLUTE EOSINOPHILS # (AUTO) 0.1 10^3/uL (0.0-0.6); ABSOLUTE LYMPHOCYTES (AUTO) 1.9 10^3/uL (0.5-4.7); ABSOLUTE MONOCYTES (AUTO) 0.4 10^3/uL (0.1-1.4); BASOPHILS % (AUTO) 0.7 % (0-2); EOSINOPHILS % (AUTO) 1.3 % (0-6); HEMATOCRIT 38.3 % (36.0-47.0); HEMOGLOBIN 13.3 g/dL (12.0-15.5); LYMPHOCYTES % (AUTO) 29.8 % (13-45); MEAN CORPUSCULAR HEMOGLOBIN 29.6 pg (27.0-33.4); MEAN CORPUSCULAR HGB CONC 34.8 g/dL (32.0-36.0); MEAN CORPUSCULAR VOLUME 85 fl (80-97); MONOCYTES % (AUTO) 6.4 % (3-13); PLATELET COUNT 275 10^3/uL (150-450); RED CELL DISTRIBUTION WIDTH 14.1 % (11.5-14.0); SEGMENTED NEUTROPHILS % (AUTO) 61.8 % (42-78); TOTAL CELLS COUNTED % (AUTO) 100 %; WHITE BLOOD COUNT 6.4 10^3/uL (4.0-10.5)
[2019-12-22 14:21] LABS: ALBUMIN 4.7 g/dL (3.5-5.0); ALKALINE PHOSPHATASE 74 U/L (38-126); ANION GAP 7 (5-19); ASPARTATE AMINO TRANSFERASE 26 U/L (14-36); BILIRUBIN,TOTAL 0.4 mg/dL (0.2-1.3); BLOOD UREA NITROGEN 15 mg/dL (7-20); CALCIUM 9.8 mg/dL (8.4-10.2); CARBON DIOXIDE 30 mmol/L (22-30); CHLORIDE 101 mmol/L (98-107); GLUCOSE 96 mg/dL (75-110); POTASSIUM 4.2 mmol/L (3.6-5.0); TOTAL PROTEIN 7.8 g/dL (6.3-8.2)
[2019-12-22] MEDS: NORMAL SALINE 1000 ML 1,000 ML IV PRN ×2 (14:27→14:31)
[2019-12-22 15:13] LABS: APPEARANCE,URINE CLEAR; BILIRUBIN,URINE NEGATIVE (NEGATIVE); COLOR,URINE STRAW; GLUCOSE, URINE NEGATIVE (NEGATIVE); KETONES,URINE NEGATIVE (NEGATIVE); LEUKOCYTE ESTERASE,URINE NEGATIVE (NEGATIVE); NITRITE,URINE NEGATIVE (NEGATIVE); PROTEIN,URINE NEGATIVE (NEGATIVE); URINE SPECIFIC GRAVITY 1.012; UROBILINOGEN,URINE NEGATIVE mg/dL (<2.0)
[2019-12-22 16:19] VITALS: BP 117/61
== END 2019-12-22 16:20 | disposition home or self-care (01) ==
LOC: ER 13:01
DX: E86.0 Dehydration (principal); A08.4 Viral intestinal infection, unspecified; R11.2 Nausea with vomiting, unspecified; R10.9 Unspecified abdominal pain
CPT/HCPCS: 99284; 96361; 96374; 96375; 36415; 83690; 85025; 81025; 80053; 81001; J2405; J7030; S0028

== ENCOUNTER 2020-01-17 12:48 | Emergency (ER) | payer OTHER ==
--- NOTE | 2020-01-17 13:02 | ER Document Report ---
ED Medical Screen (RME) - General Chief Complaint: Abdominal Pain Stated Complaint: ABDOMINAL PAIN,NAUSEA,HEADACHE Time Seen by Provider: 01/17/20 13:00 Mode of Arrival: Ambulatory Information source: Patient Notes: Patient presents complaining of right upper quadrant pain for the past 2 hours with nausea. Patient denies any fever. Patient reports a history of gallbladder sludge and feels that her pain symptoms are due to this today. Patient denies any concerns about . Patient reports nausea denies any vomiting or diarrhea. I have greeted and performed a rapid initial assessment of this patient. A comprehensive ED assessment and evaluation of the patient, analysis of test results and completion of the medical decision making process will be conducted by additional ED providers. TRAVEL OUTSIDE OF THE [place] IN LAST 30 DAYS: No - Related Data Allergies/Adverse Reactions: No Known Allergies Allergy (Verified 01/17/20 12:59) Home Medications: meclizine, naproxen, omeprazole Past Medical History - Social History Chew tobacco use (# tins/day): No Frequency of alcohol use: Rare Drug Abuse: None Pulmonary Medical History: Reports: Hx Bronchitis Neurological Medical History: Reports: Hx Seizures - off meds Musculoskeltal Medical History: Reports Hx Musculoskeletal Trauma Psychiatric Medical History: Reports: Hx Anxiety Physical Exam - Vital signs Vitals: Temp Pulse Resp BP Pulse Ox 97.7 F 73 16 122/72 99 01/17/20 12:53 01/17/20 12:53 01/17/20 12:53 01/17/20 12:53 01/17/20 12:53 - Abdominal Inspection: Obese Tenderness: Tender - Right upper quadrant Course - Vital Signs Vital signs: Temp Pulse Resp BP Pulse Ox 97.7 F 73 16 122/72 99 01/17/20 12:56 01/17/20 12:53 01/17/20 12:53 01/17/20 12:53 01/17/20 12:53
[2020-01-17 13:45] LABS: ABSOLUTE BASOPHILS # (AUTO) 0.1 10^3/uL (0.0-0.2); ABSOLUTE EOSINOPHILS # (AUTO) 0.2 10^3/uL (0.0-0.6); ABSOLUTE MONOCYTES (AUTO) 0.4 10^3/uL (0.1-1.4); ABSOLUTE NEUT (AUTO) 4.6 10^3/uL (1.7-8.2); BASOPHILS % (AUTO) 0.8 % (0-2); EOSINOPHILS % (AUTO) 2.6 % (0-6); HEMATOCRIT 35.5 % (36.0-47.0); HEMOGLOBIN 12.6 g/dL (12.0-15.5); LYMPHOCYTES % (AUTO) 27.4 % (13-45); MEAN CORPUSCULAR HEMOGLOBIN 30.5 pg (27.0-33.4); MEAN CORPUSCULAR HGB CONC 35.6 g/dL (32.0-36.0); MEAN CORPUSCULAR VOLUME 86 fl (80-97); MONOCYTES % (AUTO) 5.2 % (3-13); PLATELET COUNT 284 10^3/uL (150-450); RED BLOOD COUNT 4.14 10^6/uL (3.72-5.28); RED CELL DISTRIBUTION WIDTH 13.7 % (11.5-14.0); TOTAL CELLS COUNTED % (AUTO) 100 %; WHITE BLOOD COUNT 7.2 10^3/uL (4.0-10.5)
[2020-01-17 14:00] LABS: ALBUMIN 4.5 g/dL (3.5-5.0); ALKALINE PHOSPHATASE 89 U/L (38-126); ANION GAP 8 (5-19); ASPARTATE AMINO TRANSFERASE 25 U/L (14-36); BILIRUBIN,TOTAL 0.4 mg/dL (0.2-1.3); BLOOD UREA NITROGEN 27 mg/dL (7-20); CALCIUM 9.2 mg/dL (8.4-10.2); CARBON DIOXIDE 27 mmol/L (22-30); CHLORIDE 102 mmol/L (98-107); GLUCOSE 102 mg/dL (75-110); POTASSIUM 4.4 mmol/L (3.6-5.0); TOTAL PROTEIN 7.3 g/dL (6.3-8.2)
[2020-01-17] MEDS ORDERED: GLYCOPYRROLATE INJ 0.4 MG/2 ML VIAL IM ONE (14:33)
[2020-01-17] MEDS ORDERED: ONDANSETRON 4 MG TAB.RAPDIS PO ONE (14:34)
--- NOTE | 2020-01-17 14:37 | ER Document Report ---
ED General - General Chief Complaint: Abdominal Pain Stated Complaint: ABDOMINAL PAIN,NAUSEA,HEADACHE Time Seen by Provider: 01/17/20 13:00 Mode of Arrival: Ambulatory TRAVEL OUTSIDE OF THE [place] IN LAST 30 DAYS: No - HPI Notes: Patient is a 24-year-old female who presents the emergency department for evaluation of right upper quadrant pain. She has known sludge in the gallblad sujit, states she recently underwent a HIDA scan. She is consulted with a surgeon in [place]. She states this morning at about 5:30 AM she woke up with right upper quadrant abdominal pain. Initially it was squeezing, that it feels like "I got beat up." Currently puts her pain at a 6 out of 10. She had some nausea but no emesis. She states her last p.o. intake was approximately 5 PM the prev ious day, at which time she had ingested a cauliflower salad with mayonnaise. No fevers. Normal urination. Normal bowel movements, denies possibility of being . - Related Data Allergies/Adverse Reactions: No Known Allergies Allergy (Verified 01/17/20 12:59) Home Medications: meclizine, naproxen, omeprazole Past Medical History - General Information source: Patient - Social History Smoking Status: Never Smoker Chew tobacco use (# tins/day): No Frequency of alcohol use: Rare Drug Abuse: None Family History: Reviewed & Not Pertinent, Other - She reports that she has a family history of CVAs as well as other problems, such as brain tumors and subdurals Patient has homicidal ideation: No Pulmonary Medical History: Reports: Hx Bronchitis Neurological Medical History: Reports: Hx Seizures - off meds GI Medical History: Reports: Hx Gastroesophageal Reflux Disease Musculoskeletal Medical History: Reports Hx Musculoskeletal Trauma Psychiatric Medical History: Reports: Hx Anxiety Review of Systems - Review of Systems Gastrointestinal: See HPI -: Yes All other systems reviewed and negative Physical Exam - Vital signs Vitals: Temp Pulse Resp BP Pulse Ox 97.7 F 73 16 122/72 99 01/17/20 12:53 01/17/20 12:53 01/17/20 12:53 01/17/20 12:53 01/17/20 12:53 - Notes Notes: Vital signs reviewed, please refer to chart. Head is normocephalic, atraumatic. Pupils equal round, reactive to light. Neck is supple without meningismus. Heart is regular rate and rhythm. Lungs are clear to auscultation bilaterally. Abdomen is soft, moderately tender in the epigastrium and right upper quadrant without rebound or guarding, normoactive bowel sounds throughout. Extremities without cyanosis, clubbing. Posterior calves are nontender. Peripheral pulses are equal. Skin is warm and dry. Patient is awake, alert, neurological exam is nonfocal. Course - Re-evaluation Re-evalutation: 01/17/20 14:37 Patient presents emergency department for evaluation. It sounds as if she is having symptoms associated with biliary colic. Her laboratory investigations were ordered through triage. She has no leukocytosis. She has normal LFTs. She will be given symptomatic medications, awaiting ultrasound. Patient is stable, we will continue to monitor. 01/17/20 16:10 Patient is pain-free after glycopyrrolate. Her ultrasound revealed continued sludge but no signs of acute cholecystitis. She has no leukocytosis, normal LFTs. She is given further instruction on dietary changes, instructed to follow-up with her surgeon and primary care. She is to return to the ED with worsening or new concerning symptoms of any sort. - Vital Signs Vital signs: Temp Pulse Resp BP Pulse Ox 97.9 F 78 17 124/68 98 01/17/20 14:00 01/17/20 14:00 01/17/20 14:00 01/17/20 14:00 01/17/20 14:00 - Laboratory Result Diagrams: 01/17/20 13:10 01/17/20 13:10 Laboratory results interpreted by nd: 01/17/20 01/17/20 13:10 13:10 Hct 35.5 L BUN 27 H - Diagnostic Test Radiology reviewed: Reports reviewed Radiology results interpreted by me: 01/17/20 16:10 Abdomen Ultrasound 01/17/20 13:01 IMPRESSION: Contracted gallbladder with questionable minimal sludge. No stones or other evidence of acute cholecystitis. Otherwise, unremarkable right upper quadrant ultrasound as visualized. Discharge - Discharge Clinical Impression: Biliary colic Condition: Stable Disposition: HOME, SELF-CARE Instructions: Gallbladder Disease ([facility]) Additional Instructions: Avoid fatty and greasy foods as instructed. Follow-up with primary care as well as your surgeon next week. If you develop fever, increased pain, yellowing of the skin or eyes, or any other new or concerning symptoms, please return immediately to the emergency department for reevaluation.
--- NOTE | 2020-01-17 15:58 | RADIOLOGY REPORT (SQ) ---
EXAM DESCRIPTION: U/S ABDOMEN LIMITED W/O DOP IMAGES COMPLETED DATE/TIME: 01/17/2020 3:48 pm REASON FOR STUDY: RUQ pain COMPARISON: None. TECHNIQUE: Dynamic and static grayscale images acquired of the abdomen and recorded on PACS. Additio nal selected color Doppler and spectral images recorded. LIMITATIONS: Some structures obscured by bowel gas. FINDINGS: PANCREAS: Obscured by bowel gas. LIVER: No masses. Echotexture normal. LIVER VASCULATURE: Normal directional flow of the main portal vein and hepatic veins. GALLBLADDER: Decompressed. No stones. Questionable mild sludge. No wall thickening or pericholecys tic fluid. ULTRASOUND-DETECTED WALLACE'S SIGN: Negative. INTRAHEPATIC DUCTS AND COMMON DUCT: CBD and intrahepatic ducts normal caliber. No filling defects. INFERIOR VENA CAVA: Normal flow. AORTA: Partially visualized. No aneurysm. RIGHT KIDNEY: Normal size measuring 11.6 cm. Normal echogenicity. No solid or suspicious masses. No hydronephrosis. No calcifications. PERITONEAL AND RIGHT PLEURAL SPACE: No ascites or effusions. OTHER: No other significant findings. IMPRESSION: Contracted gallbladder with questionable minimal sludge. No stones or other evidence of acute cholecystitis. Otherwise, unremarkable right upper quadrant ultrasound as visualized. TECHNICAL DOCUMENTATION: JOB ID: [id number] 2010 [employer]- All Rights Reserved Reading location - IP/workstation name: [email or web address]
[2020-01-17 16:13] VITALS: BP 126/70
== END 2020-01-17 16:23 | disposition home or self-care (01) ==
LOC: ER 12:48
DX: K80.50 Calculus of bile duct without cholangitis or cholecystitis without obstruction (principal); K21.9 Gastro-esophageal reflux disease without esophagitis; R10.11 Right upper quadrant pain; R10.811 Right upper quadrant abdominal tenderness; R10.816 Epigastric abdominal tenderness; Z79.899 Other long term (current) drug therapy; Z79.1 Long term (current) use of non-steroidal anti-inflammatories (NSAID)
CPT/HCPCS: 99284; 96372; 36415; 83690; 84703; 85025; 80053; 76705; S0119

== ENCOUNTER 2020-04-04 14:32 | Emergency (ER) | payer OTHER ==
--- NOTE | 2020-04-04 14:49 | ER Document Report ---
ED Medical Screen (RME) - General Chief Complaint: Head Injury Stated Complaint: FALL/HEAD INJURY Time Seen by Provider: 04/04/20 14:34 Information source: Patient, Relative Notes: Patient is a 22-year-old female comes emergency room with a history of recent syncope with LOC. Patient states she has a history of neurological syncope. She also has a history of seizures in the past. Currently patient takes no medications. She is recently seen her neurologist who only wants to monitor patient and have the record the events for the next month or 2 to see what type of actual activity she has on these syncopal episodes. She does state though she has not had one in a few months. She states she was in the bathroom and she feels like she just blacked out. She has complaint of the forehead tenderness with some swelling in the left temporal area. She has not denies any nausea vomiting or diarrhea. She denies any chest pain or shortness of breath. And as stated she currently states she takes no medications. Previously patient has been on Keppra for her seizure activity but is currently not take anything now. She also states that it does not feel like a seizure that she had because usually her seizures are preempted by a metallic taste in her mouth with sensitivity to light. states that they were texting on the phone prior to her having the syncopal episode and this was between 12:50 PM and 1:10 PM. Physical examination: Patient is a well-nourished well-developed 22-year-old female no apparent distress on examination today. Cardiac: Regular rate and rhythm no murmurs noted. Lungs: Bilateral breath sounds of breath sounds increased clear to auscultation. Abdomen: Bowel sounds present all 4 quads nontender to palpate in a sitting position. Neuro: Neural logical assessment at this time shows patient to be awake alert and oriented x4. She is neurologically intact at present. I have greeted and performed a rapid initial assessment of this patient. A comprehensive ED assessment and evaluation of the patient, analysis of test results and completion of the medical decision making process will be conducted by additional ED providers. Dictation of this chart was performed using voice recognition software; therefore, there may be some unintended grammatical errors. TRAVEL OUTSIDE OF THE [place] IN LAST 30 DAYS: No - Related Data Allergies/Adverse Reactions: No Known Allergies Allergy (Verified 01/17/20 12:59) Past Medical History Pulmonary Medical History: Reports: Hx Bronchitis Neurological Medical History: Reports: Hx Seizures - off meds GI Medical History: Reports: Hx Gastroesophageal Reflux Disease Musculoskeltal Medical History: Reports Hx Musculoskeletal Trauma Psychiatric Medical History: Reports: Hx Anxiety Physical Exam - Vital signs Vitals: Temp Pulse Resp BP Pulse Ox 97.5 F 78 17 147/70 H 100 04/04/20 14:36 04/04/20 14:36 04/04/20 14:36 04/04/20 14:36 04/04/20 14:36 Course - Vital Signs Vital signs: Temp Pulse Resp BP Pulse Ox 97.5 F 78 17 147/70 H 100 04/04/20 14:36 04/04/20 14:36 04/04/20 14:36 04/04/20 14:36 04/04/20 14:36
[2020-04-04 15:24] LABS: ABSOLUTE BASOPHILS # (AUTO) 0.1 10^3/uL (0.0-0.2); ABSOLUTE EOSINOPHILS # (AUTO) 0.1 10^3/uL (0.0-0.6); ABSOLUTE LYMPHOCYTES (AUTO) 2.1 10^3/uL (0.5-4.7); ABSOLUTE MONOCYTES (AUTO) 0.5 10^3/uL (0.1-1.4); ABSOLUTE NEUT (AUTO) 4.3 10^3/uL (1.7-8.2); BASOPHILS % (AUTO) 0.9 % (0-2); HEMATOCRIT 37.2 % (36.0-47.0); HEMOGLOBIN 12.8 g/dL (12.0-15.5); MEAN CORPUSCULAR HGB CONC 34.4 g/dL (32.0-36.0); MEAN CORPUSCULAR VOLUME 87 fl (80-97); MONOCYTES % (AUTO) 6.5 % (3-13); PLATELET COUNT 301 10^3/uL (150-450); RED BLOOD COUNT 4.26 10^6/uL (3.72-5.28); RED CELL DISTRIBUTION WIDTH 12.7 % (11.5-14.0); SEGMENTED NEUTROPHILS % (AUTO) 60.6 % (42-78); TOTAL CELLS COUNTED % (AUTO) 100 %; WHITE BLOOD COUNT 7.1 10^3/uL (4.0-10.5)
[2020-04-04 15:27] LABS: APPEARANCE,URINE CLEAR; BILIRUBIN,URINE NEGATIVE (NEGATIVE); COLOR,URINE STRAW; GLUCOSE, URINE NEGATIVE (NEGATIVE); KETONES,URINE NEGATIVE (NEGATIVE); PROTEIN,URINE NEGATIVE (NEGATIVE); URINE SPECIFIC GRAVITY 1.017; UROBILINOGEN,URINE NEGATIVE mg/dL (<2.0)
--- NOTE | 2020-04-04 15:37 | RADIOLOGY REPORT (SQ) ---
EXAM DESCRIPTION: CHEST SINGLE VIEW IMAGES COMPLETED DATE/TIME: 04/04/2020 3:22 pm REASON FOR STUDY: Syncope COMPARISON: None. NUMBER OF VIEWS: One view. TECHNIQUE: Single frontal radiographic view of the chest acquired. LIMITATIONS: None. FINDINGS: LUNGS AND PLEURA: No opacities, masses or pneumothorax. No pleural effusion. MEDIASTINUM AND HILAR STRUCTURES: No masses. Contour normal. HEART AND VASCULAR STRUCTURES: Heart normal in size. Normal vasculature. BONES: No acute findings. HARDWARE: None in the chest. OTHER: No other significant finding. IMPRESSION: NO SIGNIFICANT RADIOGRAPHIC FINDING IN THE CHEST. TECHNICAL DOCUMENTATION: JOB ID: [id number] 2010 [employer]- All Rights Reserved Reading location - IP/workstation name: [email or web address]
[2020-04-04 15:40] LABS: ALBUMIN 4.7 g/dL (3.5-5.0); ALKALINE PHOSPHATASE 70 U/L (38-126); ANION GAP 6 (5-19); ASPARTATE AMINO TRANSFERASE 25 U/L (14-36); BILIRUBIN,TOTAL 0.4 mg/dL (0.2-1.3); BLOOD UREA NITROGEN 15 mg/dL (7-20); CALCIUM 9.7 mg/dL (8.4-10.2); CARBON DIOXIDE 29 mmol/L (22-30); CHLORIDE 103 mmol/L (98-107); GLUCOSE 102 mg/dL (75-110); POTASSIUM 4.6 mmol/L (3.6-5.0); TOTAL PROTEIN 7.7 g/dL (6.3-8.2)
--- NOTE | 2020-04-04 15:46 | RADIOLOGY REPORT (SQ) ---
EXAM DESCRIPTION: CT HEAD WITHOUT IMAGES COMPLETED DATE/TIME: 04/04/2020 2:19 pm REASON FOR STUDY: Syncope with loss of consciousness. COMPARISON: None. TECHNIQUE: Axial images acquired through the brain without intravenous contrast. Images reviewed wi th bone, brain and subdural windows. Additional sagittal and coronal reconstructions were generated. Images stored on PACS. All CT scanners at this facility use dose modulation, iterative reconstruction, and/or weight based d osing when appropriate to reduce radiation dose to as low as reasonably achievable (ALARA). [facility]: Dose Right [facility]: CareDose [facility]: Dose Right [facility]: Teradose 4D [facility]: Smart [employer] RADIATION DOSE: CT Rad equipment meets quality standard of care and radiation dose reduction techniq ues were employed. CTDIvol: 53.2 mGy. DLP: 964 mGy-cm. mGy. LIMITATIONS: None. FINDINGS: VENTRICLES: Normal size and contour. CEREBRUM: No masses. No hemorrhage. No midline shift. No evidence for acute infarction. Normal gra y/white matter differentiation. No areas of low density in the white matter. CEREBELLUM: No masses. No hemorrhage. No alteration of density. No evidence for acute infarction. EXTRAAXIAL SPACES: No fluid collections. No masses. ORBITS AND GLOBE: No intra- or extraconal masses. Normal contour of globe without masses. CALVARIUM: No fracture. PARANASAL SINUSES: No fluid or mucosal thickening. SOFT TISSUES: No mass or hematoma. OTHER: No other significant finding. IMPRESSION: NO ACUTE INTRACRANIAL IMAGING FINDINGS. EVIDENCE OF ACUTE STROKE: NO. COMMENT: Quality ID # [id number]: Final reports with documentation of one or more dose reduction techniques (e.g., Automated exposure control, adjustment of the mA and/or kV according to patient size, use of iterative reconstruction technique) TECHNICAL DOCUMENTATION: JOB ID: [id number] 2010 [employer]- All Rights Reserved Reading location - IP/workstation name: [email or web address]
--- NOTE | 2020-04-04 16:20 | ER Document Report ---
ED General - General Chief Complaint: Syncope Stated Complaint: FALL/HEAD INJURY Time Seen by Provider: 04/04/20 14:34 TRAVEL OUTSIDE OF THE [place] IN LAST 30 DAYS: No - HPI Notes: Chief complaint: Syncope HPI: 22-year-old female presenting to ED with a history of recent syncope with momentary LOC. Patient states she has a history of recurrent syncopal episodes and possible seizures in the past. Currently patient takes no medications. She is recently seen her neurologist who only wants to monitor patient and have the record the events for the next month or 2 to see what type of actual act ivity she has on these syncopal episodes. She does state though she has not had one in a few months. She states she was in the bathroom and she feels like she just blacked out. She has complaint of the forehead tenderness with some swelling in the left temporal area. She has not denies any nausea vomiting or diarrhea. She denies any chest pain or shortness of breath. And as stated she currently states she takes no medications. Previously patient has been on Keppra for her seizure activity but is currently not take anything now. She also states that it does not feel like a seizure that she had because usually her seizures are preempted by a metallic taste in her mouth with sensitivity to light. states that they were texting on the phone prior to her having the syncopal episode and this was between 12:50 PM and 1:10 PM. Patient says she has been told by her neurologist that her previous episodes are likely to be related to "some change with my heart and blood pressure". She apparently has not been seen by a clerical adjuster. She is a non-smoker. Occasional consumption of wine socially. No drug use. Her only other medical problem is history of minimally symptomatic gallstones. She is not on any type of hormonal medication. She denies any history of thromboembolic disease. - Related Data Allergies/Adverse Reactions: No Known Allergies Allergy (Verified 01/17/20 12:59) Past Medical History - General Information source: Patient, Relative - Social History Smoking Status: Never Smoker Chew tobacco use (# tins/day): No Frequency of alcohol use: None Drug Abuse: None Family History: Reviewed & Not Pertinent, Other - She reports that she has a family history of CVAs as well as other problems, such as brain tumors and subdurals Patient has homicidal ideation: No Pulmonary Medical History: Reports: Hx Bronchitis Neurological Medical History: Reports: Hx Seizures - off meds GI Medical History: Reports: Hx Gastroesophageal Reflux Disease, Other - History of cholelithiasis Musculoskeletal Medical History: Reports Hx Musculoskeletal Trauma Psychiatric Medical History: Reports: Hx Anxiety Past Surgical History: Reports: None Review of Systems - Review of Systems Notes: Constitutional: Negative for fever. HENT: Negative for sore throat. Eyes: Negative for visual changes. Cardiovascular: Negative for chest pain. Respiratory: Negative for shortness of breath. Gastrointestinal: Negative for abdominal pain, vomiting or diarrhea. Genitourinary: Negative for dysuria. Musculoskeletal: Negative for back pain. Skin: Negative for rash. Neurological: As per HPI. 10 point ROS negative except as marked above and in HPI. Physical Exam - Vital signs Vitals: Temp Pulse Resp BP Pulse Ox 97.5 F 78 17 147/70 H 100 04/04/20 14:36 04/04/20 14:36 04/04/20 14:36 04/04/20 14:36 04/04/20 14:36 - Notes Notes: GENERAL: Well-developed well-nourished female approximately stated age appearing in no acute distress. SKIN: Good turgor no rashes. HEAD: Normocephalic atraumatic. EYES: PERRLA. EOMI. Conjunctivae and sclerae clear. EARS: CANALS AND TMS CLEAR. NOSE: CLEAR. MOUTH: Moist mucosa. Good dentition. No stridor or edema. No drooling. NECK: Supple. No masses or thyromegaly. No adenopathy. Carotids 2+ without bruits. No JVD. BACK: Symmetrical without tenderness. CHEST: Respirations unlabored. Breath sounds clear and symmetrical. HEART: Regular rhythm. No murmur gallop or rub. ABDOMEN: Soft nontender without masses, organomegaly or rebound. Bowel sounds normally active. No bruits. GENITALIA: Deferred. EXTREMITIES: No edema. No calf tenderness. Cap refill less than 1.5 seconds. Dorsalis pedis and posterior tibial pulses 3+ and symmetrical. NEUROLOGICAL: GCS 15. Alert and oriented x3. Normal gait. Fluent speech. Cranial nerves II through XII intact. Sensorimotor and cerebellar normal. Normal tone. PSYCHIATRIC: Appropriate affect. Course - Re-evaluation Re-evalutation: 04/04/20 17:11 Patient has been stable throughout period of observation in the emergency department. Head CT showed no acute changes. EKG, chemistry profile, CBC, urinalysis and urine drug screen all unremarkable. I talked with the patient and her at some length. I think her findings are most suggestive of possible recurrent episodes of neurocardiogenic syncope. I advised usual precautions regarding driving etc. and instructed her to follow- up with her neurologist and also we provided her name of the on-call clerical adjuster for outpatient follow-up. Findings, clinical impression and plan of treatment have been discussed with patient/family. Understanding of current findings and recommendations has been acknowledged by them and there is agreement regarding disposition and follow-up. - Vital Signs Vital signs: Temp Pulse Resp BP Pulse Ox 97.5 F 78 17 147/70 H 100 04/04/20 14:36 04/04/20 14:36 04/04/20 14:36 04/04/20 14:36 04/04/20 14:36 - Laboratory Result Diagrams: 04/04/20 15:06 04/04/20 15:06 Laboratory results interpreted by me: 04/04/20 15:06 Urine Blood MODERATE H Discharge - Discharge Clinical Impression: Syncope Condition: Stable Disposition: HOME, SELF-CARE Additional Instructions: Syncopal Episode Syncope (fainting or near-fainting) can occur from many different health problems. Or it can be a simple fainting spell requiring no treatment. It is safe for you to go home, but further evaluation will likely be necessary. Your work-up may include tests for internal bleeding, heart disease, medication problems, or near-strokes. Tests are not always required, however, depending on the nature of your problem. The warning signs of an impending faint include: dizziness, lightheadedness, nausea, hot flashes, tingling, and weakness. If this happens, lay down and put your feet up, then wait until all of these symptoms have passed before standing up again. If these episodes become recurrent, or if you develop chest pain, heart palpitations, mental confusion, blurred vision, or headache, then you should call the physician, or go to the emergency room. Do not drive until further evaluated by your neurologist and a clerical adjuster. Your current findings suggest the possibility of a type of recurrent fainting referred to as "neurocardiogenic syncope" and you may benefit from further testing which can best be provided by clerical adjuster. Return here as needed for new or worsening symptoms: Pain that is worsening or unimproved Uncontrolled vomiting Overall worsening Referrals: SHANE RUEDA MD [ACTIVE PROVISIONAL STAFF] - Follow up as needed
[2020-04-04 16:38] LABS: URINE AMPHETAMINES SCREEN NEGATIVE; URINE BARBITURATES SCREEN NEGATIVE; URINE BENZODIAZEPINES SCREEN NEGATIVE; URINE COCAINE SCREEN NEGATIVE; URINE MARIJUANA (THC) SCREEN NEGATIVE; URINE METHADONE SCREEN NEGATIVE; URINE PHENCYCLIDINE SCREEN NEGATIVE
[2020-04-04 17:30] VITALS: BP 132/72
--- NOTE | 2020-04-05 01:08 | EKG REPORT ---
SEVERITY:- NORMAL ECG - SINUS RHYTHM : Confirmed by: Koby Carter 05-Apr-2020 01:07:01
== END 2020-04-04 17:30 | disposition home or self-care (01) ==
LOC: ER 14:32
DX: R55 Syncope and collapse (principal); R22.0 Localized swelling, mass and lump, head
CPT/HCPCS: 36415; 70450; 71045; 80053; 80307; 81001; 85025; 93005; 93010; 99284

== ENCOUNTER 2020-07-19 12:34 | Emergency (ER) | payer OTHER ==
--- NOTE | 2020-07-19 13:07 | ER Document Report ---
ED Medical Screen (RME) - General Chief Complaint: Cough Stated Complaint: CHEST PAIN,COUGH,CONGESTION Time Seen by Provider: 07/19/20 13:02 Mode of Arrival: Ambulatory Information source: Patient Notes: 24-year-old female presents to ED for epigastric pain for the last 4 weeks. She states she is 9 weeks . She does have a history of reflux. She is 5 para 2. She states that she was concerned because she continued to have this chest pain epigastric pain for the last 4 weeks. She states she does go to [facility]. She states her last ultrasound was 2 weeks ago everything was good and everything was good with the baby. She states when the pain comes she does get short of breath but it is usually with the pain. I have greeted and performed a rapid initial assessment of this patient. A comprehensive ED assessment and evaluation of the patient, analysis of test results and completion of medical decision making process will be conducted by an additional ED providers. TRAVEL OUTSIDE OF THE [place] IN LAST 30 DAYS: No - Related Data Allergies/Adverse Reactions: No Known Allergies Allergy (Verified 01/17/20 12:59) Past Medical History - General Information source: Patient - Social History Cigarette use (# per day): No - Former Chew tobacco use (# tins/day): No Frequency of alcohol use: None Drug Abuse: None Lives with: Family Family history: Reviewed & Not Pertinent - Past Medical History Cardiac Medical History: Reports: None Pulmonary Medical History: Reports: Hx Bronchitis Neurological Medical History: Reports: Hx Seizures - off meds Endocrine Medical History: Reports: None Renal/ Medical History: Reports: None Malignancy Medical History: Reports: None GI Medical History: Reports: Hx Gastroesophageal Reflux Disease Musculoskeltal Medical History: Reports Hx Musculoskeletal Trauma Psychiatric Medical History: Reports: Hx Anxiety Traumatic Medical History: Reports: None Infectious Medical History: Reports: None Surgical Hx: Negative Past Surgical History: Reports: None - Immunizations Immunizations up to date: Yes Hx Diphtheria, Pertussis, Tetanus Vaccination: Yes - 2017 Physical Exam - Vital signs Vitals: Temp Pulse Resp BP Pulse Ox 98.6 F 79 16 117/63 99 07/19/20 12:41 07/19/20 12:41 07/19/20 12:41 07/19/20 12:41 07/19/20 12:41 Course - Vital Signs Vital signs: Temp Pulse Resp BP Pulse Ox 98.6 F 79 16 117/63 99 07/19/20 12:41 07/19/20 12:41 07/19/20 12:41 07/19/20 12:41 07/19/20 12:41
[2020-07-19] MEDS ORDERED: METOCLOPRAMIDE HCL ORAL SOLN 10 MG/10 ML UDCUP PO ONE (13:08)
[2020-07-19] MEDS ORDERED: MAG HYDROX/AL HYDROX/SIMETH SUSP 30 ML UDCUP PO ONE (13:08)
[2020-07-19] MEDS ORDERED: LIDOCAINE 2% VISCOUS SOLN 15 ML UDCUP PO ONE (13:08)
--- NOTE | 2020-07-19 13:32 | RADIOLOGY REPORT (SQ) ---
EXAM DESCRIPTION: CHEST 2 VIEWS IMAGES COMPLETED DATE/TIME: 07/19/2020 1:20 pm REASON FOR STUDY: Chest/epigastric pain COMPARISON: 04/04/2020 EXAM PARAMETERS: NUMBER OF VIEWS: two views TECHNIQUE: Digital Frontal and Lateral radiographic views of the chest acquired. RADIATION DOSE: NA LIMITATIONS: none FINDINGS: LUNGS AND PLEURA: No opacities, masses or pneumothorax. No pleural effusion. MEDIASTINUM AND HILAR STRUCTURES: No masses or contour abnormalities. HEART AND VASCULAR STRUCTURES: Heart normal size. No evidence for failure. BONES: No acute findings. HARDWARE: None in the chest. OTHER: No other significant finding. IMPRESSION: NO ACUTE RADIOGRAPHIC FINDING IN THE CHEST. TECHNICAL DOCUMENTATION: JOB ID: [id number] 2010 [employer]- All Rights Reserved Reading location - IP/workstation name: [email or web address]
[2020-07-19 14:26] LABS: ABSOLUTE BASOPHILS # (AUTO) 0.1 10^3/uL (0.0-0.2); ABSOLUTE LYMPHOCYTES (AUTO) 1.6 10^3/uL (0.5-4.7); ABSOLUTE MONOCYTES (AUTO) 0.4 10^3/uL (0.1-1.4); BASOPHILS % (AUTO) 0.6 % (0-2); EOSINOPHILS % (AUTO) 0.5 % (0-6); HEMATOCRIT 34.6 % (36.0-47.0); HEMOGLOBIN 12.1 g/dL (12.0-15.5); LYMPHOCYTES % (AUTO) 17.8 % (13-45); MEAN CORPUSCULAR HEMOGLOBIN 28.6 pg (27.0-33.4); MEAN CORPUSCULAR HGB CONC 34.8 g/dL (32.0-36.0); MEAN CORPUSCULAR VOLUME 82 fl (80-97); PLATELET COUNT 258 10^3/uL (150-450); RED BLOOD COUNT 4.22 10^6/uL (3.72-5.28); RED CELL DISTRIBUTION WIDTH 14.9 % (11.5-14.0); SEGMENTED NEUTROPHILS % (AUTO) 77.1 % (42-78); TOTAL CELLS COUNTED % (AUTO) 100 %; WHITE BLOOD COUNT 9.1 10^3/uL (4.0-10.5)
--- NOTE | 2020-07-19 14:30 | ER Document Report ---
ED GI/ - General Chief Complaint: Cough Stated Complaint: CHEST PAIN,COUGH,CONGESTION Time Seen by Provider: 07/19/20 13:02 Mode of Arrival: Ambulatory Notes: CHIEF COMPLAINT: Upper abdominal pain HPI: 24-year-old female who is 9 weeks presenting for upper abdominal pain that radiates into the chest. Has had some associated nausea and burning sensation. Also reports right upper quadrant pain. States in November of this year she was told she had problems with her gallbladder and did have an ultrasound when she was living in [place] which showed sludge. She states eating does make the discomfort worse. No shortness of breath at this time. No lower abdominal pain. States she had an ultrasound in [place] 2 weeks ago of the and everything was "okay". Patient states the pain became much worse today. ROS: See HPI - all other systems were reviewed and are otherwise negative Constitutional: no fever Eyes: no drainage, no blurred vision ENT: no runny nose, no sore throat Cardiovascular: Positive chest pain Resp: no SOB, no cough GI: no vomiting, no diarrhea, + abdominal pain, positive nausea : no dysuria Integumentary: no rash Allergy: no hives Musculoskeletal: no extremity pain or swelling Neurological: no numbness/tingling, no weakness MEDICATIONS: I agree with the patient medications as charted by the RN. ALLERGIES: I agree with the allergies as charted by the RN. PAST MEDICAL HISTORY/PAST SURGICAL HISTORY: Reviewed and agree as charted by RN. SOCIAL HISTORY: Reviewed and agree as charted by RN. FAMILY HISTORY: No significant familial comorbid conditions directly related to patient complaint EXAM: Reviewed vital signs as charted by RN. CONSTITUTIONAL: Alert and oriented and responds appropriately to questions. Well-appearing; well-nourished HEAD: Normocephalic; atraumatic EYES: PERRL; Conjunctivae clear, sclerae non-icteric ENT: normal nose; no rhinorrhea; moist mucous membranes; pharynx without lesions noted, no uvula edema or deviation, no tonsillar hypertrophy, phonation normal NECK: Supple without meningismus; non-tender; no cervical lymphadenopathy, no masses CARD: RRR; no murmurs, no clicks, no rubs, no gallops; symmetric distal pulses RESP: Normal chest excursion without splinting or tachypnea; breath sounds clear and equal bilaterally; no wheezes, no rhonchi, no rales, pulse oximetry 99% on room air not hypoxic ABD/GI: Normal bowel sounds; non-distended; soft, mild tenderness through the epigastric region and right upper quadrant region on palpation, no rebound, no guarding; no palpable organomegaly or masses. BACK: The back appears normal and is non-tender to palpation, there is no CVA tenderness EXT: Normal ROM in all joints; non-tender to palpation; no cyanosis, no effusions, no edema SKIN: Normal color for age and race; warm; dry; good turgor; no acute lesions noted NEURO: Moves all extremities equally; Motor and sensory function intact PSYCH: The patient's mood and manner are appropriate. Grooming and personal hyg iene are appropriate. MDM: 24-year-old female presenting with right upper quadrant and epigastric p ain. Pain has been intermittent, occasionally radiates up into the chest after eating. Patient states today the pain seemed much worse. Initial screening lab work, chest x-ray and EKG placed in triage. I will add gallbladder ultrasound. TRAVEL OUTSIDE OF THE [place] IN LAST 30 DAYS: No - Related Data Allergies/Adverse Reactions: No Known Allergies Allergy (Verified 01/17/20 12:59) Past Medical History - General Information source: Patient - Social History Smoking Status: Never Smoker Cigarette use (# per day): No - Former Chew tobacco use (# tins/day): No Frequency of alcohol use: Occasional Drug Abuse: None Lives with: Family Family History: Reviewed & Not Pertinent, Other - She reports that she has a family history of CVAs as well as other problems, such as brain tumors and subdurals - Past Medical History Cardiac Medical History: Reports: None Pulmonary Medical History: Reports: Hx Bronchitis Neurological Medical History: Reports: Hx Seizures - off meds Endocrine Medical History: Reports: None Renal/ Medical History: Reports: None Malignancy Medical History: Reports: None GI Medical History: Reports: Hx Gastroesophageal Reflux Disease Musculoskeletal Medical History: Reports Hx Musculoskeletal Trauma Psychiatric Medical History: Reports: Hx Anxiety Traumatic Medical History: Reports: None Infectious Medical History: Reports: None Surgical Hx: Negative Past Surgical History: Reports: None - Immunizations Immunizations up to date: Yes Hx Diphtheria, Pertussis, Tetanus Vaccination: Yes - 2017 Physical Exam - Vital signs Vitals: Temp Pulse Resp BP Pulse Ox 98.6 F 79 16 117/63 99 11/06/20 12:41 07/19/20 12:41 07/19/20 12:41 07/19/20 12:41 07/19/20 12:41 Course - Re-evaluation Re-evalutation: 07/19/20 15:35 EKG normal sinus rhythm with a ventricular rate of 79, CA 132, QT 364, QTc 418. Normal EKG no other ectopy. Interpreted by emergency department physicians 07/19/20 16:13 Patient ultrasound shows sludge but no cholelithiasis or cholecystitis. Patient's lab work otherwise normal. Patient symptoms suggest gastritis, may still be biliary colic. Discussed bland diet. Will place patient on Pepcid. We will not place patient on narcotic pain medication as she is currently. Will refer to gastroenterology although patient states she is soon going to [place] and will follow up there. Return instructions discussed - Vital Signs Vital signs: Temp Pulse Resp BP Pulse Ox 98.6 F 79 16 117/63 99 07/19/20 12:41 07/19/20 12:41 07/19/20 12:41 07/19/20 12:41 07/19/20 12:41 - Laboratory Result Diagrams: 07/19/20 14:11 07/19/20 14:11 Laboratory results interpreted by me: 07/19/20 07/19/20 14:11 14:11 Hct 34.6 L RDW 14.9 H Sodium 136.8 L Beta HCG, Quant 927343.00 H Discharge - Discharge Clinical Impression: Abdominal pain, acute, epigastric, Biliary sludge determined by ultrasound Qualifiers: Weeks of gestation: 9 weeks Qualified Code(s): Z3A.09 - 9 weeks gestation of Condition: Stable Disposition: HOME, SELF-CARE Additional Instructions: Your lab work did not show any abnormalities. Your ultrasound showed gallbladder sludge but no stones. Polk diet. Pepcid as prescribed. Follow-up with gastroenterology and [facility] for further evaluation and treatment call for appointment return for uncontrolled pain or worsening symptoms Prescriptions: Famotidine [Pepcid 20 mg Tablet] 20 mg PO BID #60 tablet Referrals: RACHNA MCLEOD MD [ACTIVE STAFF] - Follow up as needed
[2020-07-19 14:46] LABS: ALBUMIN 4.6 g/dL (3.5-5.0); ALKALINE PHOSPHATASE 68 U/L (38-126); ANION GAP 11 (5-19); ASPARTATE AMINO TRANSFERASE 21 U/L (14-36); BILIRUBIN,TOTAL 0.5 mg/dL (0.2-1.3); BLOOD UREA NITROGEN 12 mg/dL (7-20); CALCIUM 9.9 mg/dL (8.4-10.2); CARBON DIOXIDE 24 mmol/L (22-30); CHLORIDE 102 mmol/L (98-107); GLUCOSE 102 mg/dL (75-110); POTASSIUM 3.9 mmol/L (3.6-5.0); TOTAL PROTEIN 7.6 g/dL (6.3-8.2)
--- NOTE | 2020-07-19 14:50 | EKG REPORT ---
SEVERITY:- NORMAL ECG - SINUS RHYTHM : Confirmed by: Jh Lazaro MD 19-Jul-2020 14:49:54
--- NOTE | 2020-07-19 15:45 | RADIOLOGY REPORT (SQ) ---
EXAM DESCRIPTION: U/S ABDOMEN LIMITED W/O DOP IMAGES COMPLETED DATE/TIME: 07/19/2020 3:19 pm REASON FOR STUDY: ruq pain hx gallbladder sludge COMPARISON: 01/17/2020 TECHNIQUE: Dynamic and static grayscale images acquired of the abdomen and recorded on PACS. Regi klein selected color Doppler and spectral images recorded. LIMITATIONS: None. FINDINGS: PANCREAS: No masses. Visualized pancreatic duct normal caliber. LIVER: No masses. Echotexture normal. LIVER VASCULATURE: Normal directional flow of the main portal vein and hepatic veins. GALLBLADDER: There is some sludge in the gallbladder. No gallstones. No pericholecystic fluid. No wall thickening. ULTRASOUND-DETECTED WALLACE'S SIGN: Negative. INTRAHEPATIC DUCTS AND COMMON DUCT: CBD and intrahepatic ducts normal caliber. No filling defects. AORTA: No aneurysm. RIGHT KIDNEY: Normal size, 10.4 cm. Normal echogenicity. No solid or suspicious masses. No hydroneph rosis. No calcifications. PERITONEAL AND RIGHT PLEURAL SPACE: No ascites or effusions. OTHER: No other significant findings. IMPRESSION: There is sludge in the gallbladder. No gallstones. No evidence of cholecystitis. TECHNICAL DOCUMENTATION: JOB ID: [id number] 2010 [employer]- All Rights Reserved Reading location - IP/workstation name: [email or web address]
[2020-07-19] MEDS ORDERED: FAMOTIDINE 20 MG TABLET PO ONE (16:12)
[2020-07-19 16:27] VITALS: BP 99/57
== END 2020-07-19 16:28 | disposition home or self-care (01) ==
LOC: ER 12:34
DX: O99.611 Diseases of the digestive system complicating pregnancy, first trimester (principal); K82.8 Other specified diseases of gallbladder; O26.891 Other specified pregnancy related conditions, first trimester; R10.13 Epigastric pain; R10.11 Right upper quadrant pain; R11.0 Nausea; O99.341 Other mental disorders complicating pregnancy, first trimester; F41.9 Anxiety disorder, unspecified; Z79.899 Other long term (current) drug therapy; Z3A.09 9 weeks gestation of pregnancy; Z87.19 Personal history of other diseases of the digestive system
CPT/HCPCS: 93005; 99285; 36415; 84702; 83690; 85025; 80053; 84484; 71046; 76705; 93010; J3490